=== PATIENT | male | born 1950 | race Caucasian/White ===

== ENCOUNTER → 2017-02-25 | Outpatient (CLI) | payer MEDICARE ==
[~2017-02-25] MED LIST: ACCUNEB 0.1.25 MG/1 INH; AMLODIPINE BESYL5 MG PO; ASPIR-TRIN325 MG PO; ASPIRIN ADULT L81 M2 PO; ATORVASTATIN CA80 M1 PO; BROVANA15 MCG/2 M INH; COZAAR100 MG PO; FLOVENT HFA12 GM IH; HYDRALAZINE; Hyzaar 25 MG-101 TAB PO; IS INH; KROGER NIC21 MG/24 H T; LEVAQUIN750 M1 PO; LEVAQUIN750 MG PO; LIPITOR; LOSARTAN POTAS100 M1 PO; LOSARTAN POTASS1 TA2 PO; MUCINEX600 MG PO; NO MED LIST; NORCO 325 MG-7.1 TAB PO; NORCO 7.5-3251 EACH PO; PREDNISONE10 MG PO; PREDNISONE20 M1 PO; PREDNISONE5 MG PO; PROAIR HFA0.09 MG/AC INH; PROAIR HFA8.5 GM INH; PROTONIX TR40 M1 PO; QVAR0.08 MG/AC INH; SIMVASTATIN20 MG PO; SOLU-MEDROL125 MG PO; SPIRIVA -- 3018 MCG PO; TEKTURNA300 MG PO; TRAMADOL HCL50 MG PO; TRAZODONE HYDRO50 MG PO; ULTRAM50 MG PO; VIBRAMYCIN100 MG PO; WELLBUTRIN SR150 MG PO; WELLBUTRIN100 MG PO; ZITHROMAX250 MG PO; [UNRECOGNIZED DRUG - SUPPLY] NEB
[2017-02-25 14:40] LABS: BASO # 0.1 10*3/uL (0.0-0.1); BASO % 0.7 % (0.0-1.0); EOS # 0.2 10*3/uL (0.0-0.4); EOS % 2.3 % (1.0-4.0); HEMATOCRIT 41.4 % (42.0-52.0); HEMOGLOBIN 13.3 g/dl (14.0-18.0); LYMPH # 1.9 10*3/uL (1.3-4.4); LYMPH % 19.8 % (27.0-41.0); MEAN CELL VOLUME 96.1 fl (80.0-94.0); MEAN CORPUSCULAR HGB 30.9 pg (27.0-31.0); MEAN CORPUSCULAR HGB CONC 32.1 g/dl (33.0-37.0); MONO # 0.5 10*3/uL (0.1-1.0); MONO % 5.6 % (3.0-9.0); NEUT # 6.9 10*3/uL (2.3-7.9); NEUT % 71.2 % (47.0-73.0); PLATELET COUNT AUTOMATED 442 10*3/uL (130-400); RED BLOOD COUNT 4.31 10*6/uL (4.50-5.90); RED CELL DISTRI WIDTH 13.2 % (0-14.5); WHITE BLOOD COUNT 9.7 10*3/uL (4.8-10.8)
[2017-02-25 15:11] LABS: ALKALINE PHOSPHATASE 92 U/L (45-117); BILIRUBIN, TOTAL 0.3 mg/dl (0.2-1.0); BUN 15 mg/dl (7-24); CARBON DIOXIDE 33 mmol/L (21-32); CHLORIDE 101 mmol/L (98-107); CHOLESTEROL 186 mg/dL (<200); EST GLOM FILT AFRICAN AMERICAN > 60 ml/min; GLUCOSE 98 mg/dL (65-99); HDL CHOLESTEROL 61 mg/dl (40-60); LDL CHOLESTEROL 102 mg/dL (9-159); POTASSIUM 3.9 mmol/L (3.5-5.1); SGOT/AST 20 IU/L (3-35); SGPT/ALT 16 U/L (12-78); SODIUM 142 mmol/L (136-145); TOTAL PROTEIN 7.8 gm/dL (6.4-8.2); TRIGLYCERIDES 113 mg/dl (<150); VLDL CHOLESTEROL 23 mg/dL (6-40)
== END | disposition home or self-care (01) ==
LOC: LAB 14:19
PROVIDERS: Internal Medicine
DX: Z12.5 Encounter for screening for malignant neoplasm of prostate (principal); I10 Essential (primary) hypertension; E55.9 Vitamin D deficiency, unspecified

== ENCOUNTER 2017-08-06 19:31 | Inpatient (IN) | payer MEDICARE ==
[~2017-08-06] VITALS: Ht 175.2 cm; Wt 85.5 kg
--- NOTE | ~2017-08-06 | PR ---
[place], [place] PROGRESS NOTE NAME: SCOTT HUYNH [facility] #: [id number] UNIT #: [id number] ROOM: 525 DOCTOR: CARMITA RAMOS MD,REY BIRTHDATE: [birth year] DOS: 08/13/2017 PULMONARY FOLLOWUP SUBJECTIVE: He has been noted comfortable at this time. Shortness breath was still noted with exertion, but improving. The wheezing and cough in the patient has been gradually subsiding. OBJECTIVE: VITAL SIGNS: Shows normal temperature, respiratory rate 20, heart rate 112, blood pressure 150/63. The pulse oxygen saturation on 3 liters nasal cannula is 98% saturation. HEENT: Showed no new change. NECK: Supple. CARDIOVASCULAR: S1, S2 audible. LUNGS: Noted without any crackles, mild expiratory wheezing. ABDOMEN: Soft, nontender. IMPRESSION: 1. The patient who has been currently noted progressive resolution improvement in the acute on chronic hypoxic respiratory failure. 2. Acute hypercapnic respiratory failure, resolving as well. 3. Left upper lung mass with acute tracheobronchitis. PLAN OF TREATMENT: The patient has been reassessed for adjustment of home oxygen and requires 3 liters oxygen supplementation, continued issues in the home setting. In the meantime, continue the patient on other therapy, plan and management as in progress. Usual care. Supportive therapy, plan of care and other treatments. REY VIZCARRA MD CM:PNTRANS [phone] REY RAMOS MD 08/13/17 1630 interface
--- NOTE | ~2017-08-06 | PR ---
[place], [place] PROGRESS NOTE NAME: SCOTT HUYNH [facility] #: [id number] UNIT #: [id number] ROOM: 525 DOCTOR: CARMITA RAMOS MD,REY BIRTHDATE: [birth year] DOS: 08/09/2017 SUBJECTIVE: He has been noted comfortable at this time, sitting on the bed. He has reported partial reduction of the symptoms of shortness of breath. Denies symptoms of chest pain. He has used the BiPAP for a few hours last night. OBJECTIVE: VITAL SIGNS: Normal temperature, respiratory rate 22, heart rate of 104, blood pressure 160/80. Pulse oxygen saturation of the patient recorded as 90% on 3 liters canula, 98% with the BiPAP. HEENT: Examination showed no new change. NECK: Supple. CARDIOVASCULAR: S1, S2 audible. LUNGS: Noted. Moderate decreased breath sounds were noted with expiratory wheezing. There were no crackles. ABDOMEN: Soft, nontender. EXTREMITIES: The patient was noted without any edema. LABORATORY DATA: CMP today noted normal BUN and creatinine. CBC: WBC count 18.5, platelet count mildly elevated to 435,000. IMPRESSION: 1. The patient with a left upper lung mass. 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 2. Resolving acute exacerbation of chronic obstructive pulmonary disease, acute tracheobronchitis. 3. Leukocytosis related to underlying infection because of the corticosteroids. PLAN OF MANAGEMENT: Reduce the Solu-Medrol to 40 mg every 8 hours. Monitor leukocytosis. Continue the BiPAP use. Ambulation was encouraged. Other supportive plan of therapy is in progress. REY VIZCARRA MD CM:PNTRANS [phone] REY RAMOS MD 08/09/171929 interface
--- NOTE | ~2017-08-06 | PR ---
[place], [place] PROGRESS NOTE [facility]: [facility] #: [id number] UNIT #: [id number] ROOM: 525 DOCTOR: CARMITA RAMOS MD,REY BIRTHDATE: [birth year] DOS: 08/11/2017 SUBJECTIVE: The patient was seen and examined on 08/11/2017, reported partial reduction in respiratory symptoms, still coughing and wheezing at times. Denies symptoms of chest pain. The patient has been using the BiPAP as ordered intermittently. OBJECTIVE: VITAL SIGNS: Normal temperature, respiratory rate 20, heart rate of 99, blood pressure 157/62. Pulse oxygen saturation 3 liters nasal cannula 96% saturation. HEENT: No acute change. NECK: Supple. CARDIOVASCULAR: S1, S2 audible. LUNGS: Moderate decreased breath sounds, expiratory wheezing which are noted mild to moderately. ABDOMEN: Soft, nontender. LABORATORY DATA: BMP was noted, CO2 37, otherwise was normal. CBC; WBC ____, hemoglobin 12.8, hematocrit 40.5. The culture of the sputum was pending. Gram stain shows moderate white blood cells with epithelial cells, few gram-positive cocci in pairs and clusters. Negative bacilli. Preliminary normal parveen, final culture results were pending from the 18th of this month. IMPRESSION: Persistent acute exacerbation of chronic obstructive pulmonary disease, acute tracheobronchitis as well as acute hypercapnic hypoxic respiratory failure with gradual improvement. PLAN OF TREATMENT: Monitoring culture results of the sputum. No other changes in the medication at this time will be necessary. Continuation of bronchodilators and oxygen supplementation and BiPAP. REY VIZCARRA MD CM:PNTRANS [id number] REY RAMOS MD 08/12/17 0428 interface
--- NOTE | ~2017-08-06 | PR ---
[place], [place] PROGRESS NOTE NAME: SCOTT HUYNH UNIT #: [id number] ROOM: 525 DOCTOR: REY MARSHALL MD BIRTHDATE: [birth year] DOS: 08/10/2017 SUBJECTIVE: The patient has been using the BiPAP at this time. He was noted with moderate edema of the lower extremity. The shortness of breath has been gradually subsiding. The wheezing was improving slowly. PHYSICAL EXAMINATION: VITAL SIGNS: Normal temperature, respiratory rate 20, heart rate 103, blood pressure 154/76 recorded this morning. Intake 1350, output 1575 mL. The pulse oxygen saturation on 3 liters nasal cannula and the BiPAP was 93-98% saturation. LUNGS: Moderate decreased breath sounds, mild expiratory wheezing. There were no crackles. ABDOMEN: Soft, nontender. EXTREMITIES: Show mild edema. Dryness of the lower extremities. LABORATORY DATA: The patient's CBC today: WBC count 17.6, platelet count 440,000 with mild reduction in hemoglobin and hematocrit. The BMP for the patient that was done this morning showed normal BUN and creatinine. IMPRESSION: 1. The patient was currently noted with resolving acute on chronic hypoxic, patient with resolving rather acute hypercapnic and hypoxic respiratory failure. 2. 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 Edema of the lower extremities secondary to congestive heart failure and cor pulmonale. PLAN OF TREATMENT: Continuation of current dose of bronchodilators, oxygen supplementation, corticosteroids and other treatment as previously. Solu-Medrol of the patient is currently being used at 40 mg every 8 hours. It will be decreased to b.i.d. dosing. Diuretic therapy would be recommended for edema of the lower extremity. Cardiology consultation if not already obtained should be done. [place], [place] PROGRESS NOTE NAME: SCOTT HUYNH UNIT #: [id number] ROOM: [facility] DOCTOR: REY MARSHALL MD BIRTHDATE: [birth year] REY VIZCARRA MD CM:PNTRANS [id number] REY RAMOS MD 08/10/17 1844 interface
--- NOTE | ~2017-08-06 | CON ---
[place], [place] REPORT OF CONSULTATION NAME: SCOTT HUYNH [facility] #: [id number] UNIT #: [id number] ROOM: 525 DOCTOR: REY MARSHALL MD BIRTHDATE: [birth year] DOS: 08/07/2017 CONSULTATION REQUESTED BY: Hospitalist services. REASON FOR CONSULTATION: Recurrent ongoing respiratory symptoms as well as the mass lesion noted on the current chest x-ray and confirmed with the CT scan of the chest. HISTORY OF PRESENT ILLNESS: A 67-year-old white male patient who has been admitted to the hospital to the hospitalist services on 08/06/2017. The patient came into the Emergency as he had developed progressive increased respiratory symptoms over the past couple of weeks. He was noted with symptoms of shortness of breath, which has noted significantly worse. The patient was also noted with symptoms of coughing, which has been also noted significant increase. The wheezing also described intermittently with chest pain, which is described nonspecific as well. The patient denies any symptoms of hemoptysis. He has been currently hospitalized and treated for the acute exacerbation of COPD. The chest x-ray reported with the left upper lung mass. REVIEW OF SYSTEMS: CONSTITUTIONAL: Denies fatigue and tiredness for this patient. The patient denies any abnormal weight loss history. Denies fever or chills. EYES: Denies any burning, redness, or diplopia. ENT: Denies sore throat, hoarseness, otalgia, postnasal drainage or epistaxis. CARDIOVASCULAR: Denies any symptoms of anginal pain, palpitation, or edema of the lower extremities. GASTROINTESTINAL: Denies dysphagia, nausea, vomiting, diarrhea, abdominal pain, hematemesis, melena, or hematochezia. Denies any symptoms of dysphagia. GENITOURINARY: Denies dysuria, suprapubic pain, or hematuria. MUSCULOSKELETAL: Denies acute joint pain, redness or tenderness, except some pain was described in the left elbow intermittently. CENTRAL NERVOUS SYSTEM: Denies dizziness, headache, diplopia, syncopal episodes or seizures. SKIN: Denies lesions or rashes. Remaining systems for the patient were reviewed and they were noted all negative. PAST MEDICAL HISTORY: 1. The patient with known history of essential hypertension. 2. COPD, longstanding. He has a history of nicotine abuse. 3. Degenerative arthritis. 4. Coronary artery disease. 5. Anemia of chronic disease. PAST SURGICAL HISTORY: Noted left knee surgery. SOCIAL HISTORY: The patient is currently , has 2 daughters. Denies any history of alcohol use, illicit drug use or occupational exposure history. 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 FAMILY HISTORY: The patient's father at 59 years of complications of myocardial infarction. Mother approximately age of 7070 years old related to COPD. MEDICATIONS: The home medications reported are use of Norvasc, ProAir HFA inhaler, aspirin, Flovent HFA inhaler, [place] 7.5/325 p.r.n. use, losartan and prednisone recent tapering dose. DRUG ALLERGIES: Noted for no known drug allergies. PHYSICAL EXAMINATION: GENERAL: This is a 67-year-old white male who has been currently noted comfortably sitting on the bed without any distress at this time of the assessment. VITAL SIGNS: Height for the patient recorded as 5 feet 9 inches, weight of 188 pounds, BMI 27.8. Recorded normal temperature, respiratory rate 18-28, heart rate 96-106 with sinus tachycardia, blood pressure 118/66-160/64. The pulse oxygen saturation of the patient recorded on 2 liters nasal cannula 96% saturation. HEENT: Head is atraumatic. Eyes, nonicterus. NECK: Supple. There were no signs of ptosis or miosis. The JVD does not seem to be elevated in sitting position. LUNGS: Noted diffuse reduction in breath sounds with diffuse expiratory wheezing without any crackles heard. ABDOMEN: Soft, mild obesity. Bowel sounds present without any tenderness. EXTREMITIES: The patient was noted without any edema, clubbing or cyanosis. CENTRAL NERVOUS SYSTEM: The patient was noted without any focal deficit. EXTREMITIES: Cranial nerves 2-12 intact. MUSCULOSKELETAL: No deformities. SKIN: No visible lesions or rashes on the exposed skin. LABORATORY DATA: CBC of the patient that was done 08/06/2017 WBC 18.5, hemoglobin 13.9, hematocrit 44.4, platelet count of 487,000. CMP of the patient of 08/06/2017: BUN and creatinine were normal. CO2 39, remaining CMP normal. Arterial blood gas 08/06/2017 pH of 7.33, pCO2 68.1, pO2 of 88.8 on 2 liter nasal cannula. PT and PTT patient were noted as normal. CBC of this morning, WBC count 10.9, hemoglobin 11.5, hematocrit 37.2, platelet count 406,000, 96% noted with auto differential. CMP this morning, normal BUN and creatinine, CO2 of 37. Albumin of 3.0, total protein mildly decreased at 5.9. Troponin yesterday and this morning for the patient 3 sets were completed, they were noted all normal. Chest x-ray that was done at admission was reviewed that was done for this patient on 08/06/2017 shows a left apical mass, with noted changes of COPD and hyperinflation. The chest x-ray of patient on 05/04/2017 was noted with pleural thickening was noted in the left apex. The patient had a chest x-ray done 03/19/[address] scan of the chest that was done for this patient on 03/21/2017 was personally reviewed at that time. A 4.2 cm spiculated [place], [place] REPORT OF CONSULTATION NAME: SCOTT HUYNH UNIT #: [id number] ROOM: [facility] DOCTOR: CARMITA RAMOS MD,[facility] BIRTHDATE: [birth year] mass noted in the left apex. The patient has 1.5 cm spiculated nodule was noted in the right upper lung with paraseptal and centrilobular emphysema changes noted in the lungs bilaterally. The CT scan of the chest that was done on 08/06/2017, assessment of current abnormal chest x-ray showed marked increase in the size of the mass from 4.5 cm in size and that has been increased at this time to 7.7 x 5.6 cm in size involving with destruction of the first, second and third left rib cage. The nodule in the right upper lung for this patient appeared to be the same. A small nodule was noted in the left lung as well. Changes of centrilobular emphysema and paraseptal emphysema changes were noted as well about the same. Lack of the IV contrast does limit the assessment of the mediastinum; however, there was no obvious lymphadenopathy noted in the left hilar area or the mediastinum at this time. IMPRESSION: 1. The patient who has been currently admitted to the hospital with the severe acute hypercapnic respiratory failure. The patient with acute exacerbation of chronic obstructive pulmonary disease and acute bacterial bronchitis. 2. Left upper lung mass, with destruction of the first, second and third rib involving most likely consistent with malignancy, which has been noted gradually progressive in the patient since last CT scan of 03/2016. 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 3. History of chronic continued nicotine dependence was noted as well. PLAN OF MANAGEMENT: The patient has been currently getting intravenous corticosteroids 80 mg q.8h., which will be continued the same dose for the next 24 hours prior to reduction. Patient was getting the antibiotics for the community-acquired bacterial infection and bronchitis that will be continued. Assessment for the current malignant process needs to be done as an outpatient. The patient's further workup if it is done for this patient as an outpatient would be inquired from the primary care physician's office as well. Collect the sputum for Gram stain culture obtained. Other arterial blood gas to assess the patient's current response by the medical management if the CO2 continues to be elevated or decreased. Consider use of the BiPAP support for this patient to help resolve the hypoxic respiratory failure. Other supportive therapy, plan of management and care. Nicotine replacement patch to overcome the nicotine withdrawal. Other additional treatment changes need to be made to the patient treatment based on progression of the illness. Thank you for allowing me to participate in the care in this patient. [place], [place] REPORT OF CONSULTATION NAME: LINOSCOTT UNIT #: [id number] ROOM: 525 DOCTOR: REY MARSHALL MD BIRTHDATE: [birth year] REY VIZCARRA MD CM:CONSTR:REPORT OF CONSULTATION 1336 08/08/17 1313 interface
--- NOTE | ~2017-08-06 | PR ---
[place], [place] PROGRESS NOTE NAME: SCOTT HUYNH UNIT #: [id number] ROOM: 525 DOCTOR: REY MARSHALL MD BIRTHDATE: [birth year] DOS: 08/12/2017 SUBJECTIVE: He has been noted with gradual reduction of the respiratory symptoms. Shortness of breath and wheezing has been slowly improving. Denies chest pain. He has used the BiPAP at night and currently using the oxygen supplementation. OBJECTIVE: VITAL SIGNS: Normal temperature, respiratory rate 22, heart rate 99, blood pressure 152/66-154/73. The pulse oxygen saturation on 3 liters 94% saturation noted. HEENT: Showed no new change. NECK: Supple. CARDIOVASCULAR: S1, S2 audible. LUNGS: Noted with [id number] expiratory wheezing, gradually improving from previous exam. There were no crackles. ABDOMEN: Soft, nontender. LABORATORY DATA: CBC: WBC count 17.4, platelet count 505,000. BMP: BUN 17, creatinine was normal. The culture of the sputum was noted normal parveen. IMPRESSION: 1. Gradual resolution of the acute on chronic hypercapnic and hypoxic respiratory failure. 2. 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 3. Acute bronchitis. 4. Leukocytosis. PLAN OF TREATMENT: The dose of Solu-Medrol will be changed to 40 mg daily from today. The patient already getting Lasix for edema of the lower extremities. The BiPAP and the oxygen supplementation to be continued as previously. Discontinue the Zithromax and Rocephin and ____ start the patient on doxycycline 100 mg p.o. b.i.d. from today. Other treatment plan to be changed based on progression of illness, possible consideration for discharge in the morning. Home oxygen assessment to adjust the oxygen need for the home. [place], [place] PROGRESS NOTE NAME: SCOTT HUYNH UNIT #: [id number] ROOM: 525 DOCTOR: REY MARSHALL MD BIRTHDATE: [birth year] REY VIZCARRA MD CM:PNTRANS [phone] [id number] REY RAMSO MD 08/12/171926 interface
--- NOTE | ~2017-08-06 | PR ---
[place], [place] PROGRESS NOTE NAME: SCOTT HUYNH UNIT #: [id number] ROOM: 525 DOCTOR: REY MARSHALL MD BIRTHDATE: [birth year] DOS: 08/08/2017 SUBJECTIVE: The patient has been noted without any acute distress at this time. Denies symptoms of chest pain or abdominal pain. Shortness breath for the patient has been noted better. OBJECTIVE: VITAL SIGNS: For the patient which was recorded shows the temperature noted as normal. The respiratory rate recorded as 20, heart rate 102, blood pressure 172/74. The pulse oxygen saturation recorded as 92% on 2.5 liters nasal cannula. HEENT: Showed no new change. NECK: Supple. CARDIOVASCULAR: S1, S2 audible. LUNGS: Moderate expiratory wheezing were noted, partially decreased from previous examination. ABDOMEN: Soft, nontender. EXTREMITIES: Showed no edema. LABORATORY DATA: CBC today: WBC count 17.5, hemoglobin 11.7, hematocrit 36.9, platelet count 410,000. CMP this morning, normal BUN and creatinine. The blood culture was noted without any bacteria growth. IMPRESSION: 1. The patient was currently noted with resolving acute exacerbation of chronic obstructive pulmonary disease. 2. Left upper lung mass which patient most likely is malignant with possibility of superior sulcus tumor has been considered. 3. History of nicotine abuse. PLAN OF TREATMENT: The patient will be continued on the bronchodilators with oxygen supplementation. The Solu-Medrol will be continued with the same dose because of significant wheezing still present. ____ of Solu-Medrol may be started from tomorrow. [place], [place] PROGRESS NOTE NAME: SCOTT HUYNH UNIT #: [id number] ROOM: 525 DOCTOR: REY MARSHALL MD BIRTHDATE: [birth year] REY VIZCARRA MD CM:PNTRANS [phone] REY RAMSO MD 08/09/17211 interface
[2017-08-06 19:33] VITALS: BP 151/89
--- NOTE | 2017-08-06 19:51 | NUR ---
PT DOES NOT HAVE LIST OR BOTTLES OF MEDS
[2017-08-06 19:56] LABS: BASO % 0.2 % (0.0-1.0); EOS % 0.1 % (1.0-4.0); HEMATOCRIT 44.4 % (42.0-52.0); HEMOGLOBIN 13.9 g/dl (14.0-18.0); LYMPH # 1.2 10*3/uL (1.3-4.4); LYMPH % 6.3 % (27.0-41.0); MEAN CELL VOLUME 99.3 fl (80.0-94.0); MEAN CORPUSCULAR HGB 31.1 pg (27.0-31.0); MEAN CORPUSCULAR HGB CONC 31.3 g/dl (33.0-37.0); MEAN PLATELET VOLUME 9.3 fl (9.6-12.3); MONO # 0.9 10*3/uL (0.1-1.0); MONO % 4.8 % (3.0-9.0); NEUT # 16.2 10*3/uL (2.3-7.9); PLATELET COUNT AUTOMATED 487 10*3/uL (130-400); RED BLOOD COUNT 4.47 10*6/uL (4.50-5.90); RED CELL DISTRI WIDTH 13.7 % (0-14.5); WHITE BLOOD COUNT 18.5 10*3/uL (4.8-10.8)
[2017-08-06 20:13] LABS: ALBUMIN 3.9 gm/dl (3.1-4.5); ALKALINE PHOSPHATASE 91 U/L (45-117); BUN 24 mg/dl (7-24); CHLORIDE 100 mmol/L (98-107); CREATININE 0.64 mg/dL (0.70-1.30); POTASSIUM 4.6 mmol/L (3.5-5.1); SGOT/AST 14 IU/L (3-35); SGPT/ALT 19 U/L (12-78); SODIUM 145 mmol/L (136-145); TOTAL PROTEIN 7.7 gm/dL (6.4-8.2)
[2017-08-06 20:14] LABS: TROPONIN I < 0.015 ng/ml (<0.045)
[2017-08-06 21:03] LABS: ABG BASE EXCESS 7.6 mmol/L (-2.0-2.0); ABG HCO3 35.4 mmol/l (22-26); ABG O2 SATURATION 97.2 % (95-97); ARTERIAL BLOOD GAS PCO2 68.1 mmHg (35-45); ARTERIAL BLOOD GAS PH 7.335 (7.35-7.45); ARTERIAL BLOOD GAS PO2 88.8 mmHg (80-90)
[2017-08-06 21:06] VITALS: BP 151/94
--- NOTE | 2017-08-06 21:06 | NUR ---
CRITICAL PCO2, INFORMED DR UNGER
--- NOTE | 2017-08-06 21:06 | NUR ---
RETURNED FROM CT
--- NOTE | 2017-08-06 23:24 | NUR ---
WAITING ON LAB TO DRAW BLOOD CULTURES BEFORE ABLE TO START IV ANTBX, AND BEFORE CAN TAKE TO ADMISSION BED TRAFFIC SIGNAL MECHANIC UNABLE TO OBTAIN, WILL HAVE ANOTHER TECH TRY
[2017-08-07] VITALS (7 sets, daily range): BP systolic 118–161; BP diastolic 50–79
--- NOTE | 2017-08-07 00:05 | NUR ---
A 67, admitted to , under the services of ALMA Owens DO with a diagnosis of EXAC COPD, MASS OF ULL. Chief complaint is SOB. Patient arrived via stretcher from ER. Monitor applied. Initial assessment completed. Vital signs taken and recorded. ALMA OWENS DO notified of admission to the unit. Orders received. See assessment for past medical history, medications and allergies. Patient and/or family oriented to unit. [facility] Clothing/patient valuable form completed. RADHA ROTH
--- NOTE | 2017-08-07 01:15 | NUR ---
UNABLE TO VERIFY PT HOME MEDS. DR URIBE NOTIFIED.
--- NOTE | 2017-08-07 04:58 | NUR ---
DR VIZCARRA NOTIFIED OF CONSULT. NO NEW ORDERS AT THIS TIME.
[2017-08-07 06:24] LABS: MEAN CELL VOLUME 99.7 fl (80.0-94.0); MEAN CORPUSCULAR HGB 30.8 pg (27.0-31.0); MEAN CORPUSCULAR HGB CONC 30.9 g/dl (33.0-37.0); MEAN PLATELET VOLUME 9.4 fl (9.6-12.3); PLATELET COUNT AUTOMATED 406 10*3/uL (130-400); RED BLOOD COUNT 3.73 10*6/uL (4.50-5.90); RED CELL DISTRI WIDTH 13.5 % (0-14.5); WHITE BLOOD COUNT 10.9 10*3/uL (4.8-10.8)
[2017-08-07 06:25] LABS: HEMATOCRIT 37.2 % (42.0-52.0); HEMOGLOBIN 11.5 g/dl (14.0-18.0)
[2017-08-07 06:44] LABS: BUN 20 mg/dl (7-24); CHLORIDE 105 mmol/L (98-107); CHOLESTEROL 168 mg/dL (<200); CREATININE 0.44 mg/dL (0.70-1.30); PHOSPHOROUS 3.1 mg/dL (2.5-4.9); POTASSIUM 4.2 mmol/L (3.5-5.1); SGOT/AST 14 IU/L (3-35); SGPT/ALT 13 U/L (12-78); SODIUM 145 mmol/L (136-145); TOTAL PROTEIN 5.9 gm/dL (6.4-8.2); TRIGLYCERIDES 56 mg/dl (<150); VLDL CHOLESTEROL 11 mg/dL (6-40)
[2017-08-07 06:50] LABS: ACT PARTIAL THROMBO TIME 24.4 SECONDS (20.8-31.5)
[2017-08-07 06:51] LABS: ALKALINE PHOSPHATASE 68 U/L (45-117); FREE T4 1.09 ng/dl (0.76-1.46); HDL CHOLESTEROL 70 mg/dl (40-60); LDL CHOLESTEROL 87 mg/dL (9-159); THYROID STIM HORMONE (HS) 0.161 uIU/ml (0.358-4.75)
[2017-08-07 06:57] LABS: PLATELET SUFFICIENCY HIGH (NORMAL); TOTAL CELLS COUNTED 100 #CELLS
--- NOTE | 2017-08-07 08:45 | NUR ---
PT HOME MEDICATIONS NEED VARIFIED, HOWEVER PATIENT DOES NOT KNOW HOME MEDICAIONS AT ALL AND [facility] AND THEY ARE CLOSED TODAY.
[2017-08-07 09:02] LABS: VITAMIN D, 25-HYDROXY 35.8 ng/mL (30-100)
--- NOTE | 2017-08-07 09:20 | NUR ---
PT COMPLAINS OF BACK PAIN 07/03, NORCO GIVEN. SEE MAR. WILL MONITOR FOR EFFECTIVENSS. PT SITTING AT SIDE OF BED, SHORTNESS OF BREATH NOTED. PT STATES SHORTNESS OF BREATH HAS IMPROVED SOME SINCE ADMISSION. OXYGEN ON AT 3 LITERS. NO OTHER NEEDS STATED AT THIS TIME. WILL CONTINUE TO MONITOR
--- NOTE | 2017-08-07 10:53 | NUR ---
Shift chart check completed.
--- NOTE | 2017-08-07 13:37 | NUR ---
PT COMPLAINS OF BACK PAIN 06/02. NORCO GIVEN. SEE DEC. WILL MONITOR FOR EFFECTIVENESS
[2017-08-07 13:55] LABS: ABG BASE EXCESS 6.6 mmol/L (-2.0-2.0); ABG HCO3 33.4 mmol/l (22-26); ABG O2 SATURATION 94.9 % (95-97); ARTERIAL BLOOD GAS PCO2 59.3 mmHg (35-45); ARTERIAL BLOOD GAS PH 7.366 (7.35-7.45); ARTERIAL BLOOD GAS PO2 69.4 mmHg (80-90)
--- NOTE | 2017-08-07 14:05 | NUR ---
DR. VIZCARRA NOTIFIED OF ABG RESULTS, ORDER FOR BIPAP PLACED. RESPIRATORY NOTIFIED.
--- NOTE | 2017-08-07 16:39 | NUR ---
PT STATES ONLY HOME MEDICAION HE IS STILL TAKING IS ALBUTEROL INHALER AND AEROSOL TREATMENTS AND HE HAS NOT HAD THEM FILLED FOR A WHILE.
[2017-08-08] VITALS: BP 143/66
--- NOTE | 2017-08-08 02:11 | NUR ---
24 HR chart check completed.
--- NOTE | 2017-08-08 03:41 | NUR ---
PATIENT STATES HIS BROTHER WILL BRING HIS CLIP[employer] TOMORROW TO SHAVE HIS LYN SO HIS BIPAP WILL FIT PROPERLY.
--- NOTE | 2017-08-08 03:41 | NUR ---
PATIENT MEDICATED WITH PRN NORCO FOR RIB PAIN. WILL MONITOR
--- NOTE | 2017-08-08 04:45 | NUR ---
MEDICATION EFFECTIVE PER PATIENT
[2017-08-08 06:27] LABS: HEMATOCRIT 36.9 % (42.0-52.0); HEMOGLOBIN 11.7 g/dl (14.0-18.0); MEAN CELL VOLUME 98.7 fl (80.0-94.0); MEAN CORPUSCULAR HGB 31.3 pg (27.0-31.0); MEAN CORPUSCULAR HGB CONC 31.7 g/dl (33.0-37.0); MEAN PLATELET VOLUME 9.4 fl (9.6-12.3); PLATELET COUNT AUTOMATED 410 10*3/uL (130-400); RED BLOOD COUNT 3.74 10*6/uL (4.50-5.90); RED CELL DISTRI WIDTH 13.6 % (0-14.5); WHITE BLOOD COUNT 17.5 10*3/uL (4.8-10.8)
[2017-08-08 06:58] LABS: ATYPICAL LYMPHS 1 % (0-0); TOTAL CELLS COUNTED 100 #CELLS
[2017-08-08 06:59] LABS: PLATELET SUFFICIENCY NORMAL (NORMAL)
[2017-08-08 07:00] LABS: CHLORIDE 106 mmol/L (98-107); POTASSIUM 4.1 mmol/L (3.5-5.1); SODIUM 145 mmol/L (136-145)
[2017-08-08 07:06] LABS: ALBUMIN 2.9 gm/dl (3.1-4.5); ALKALINE PHOSPHATASE 66 U/L (45-117); BUN 17 mg/dl (7-24); CREATININE 0.45 mg/dL (0.70-1.30); SGOT/AST 9 IU/L (3-35); SGPT/ALT 13 U/L (12-78)
[2017-08-08 08:00] VITALS: BP 172/74
--- NOTE | 2017-08-08 08:56 | NUR ---
NORCO GIVEN PER PATIENT REQUEST FOR CHRONIC "ALL OVER" ARTHRITIC PAIN. WILL MONITOR.
--- NOTE | 2017-08-08 09:00 | NUR ---
Lidar Scientist in to talk to patient. Patient states lives at home with alone. There are no steps in the home. Physician: ann aponte [facility]acy: [facility] health services: [facility] Patient's level of ADLs: MINIMAL ASSIST Patient has working utilities: all working DME: cane, hospital bed, motorized wheelchair, home oxygen, portable tanks, nebulizer from [facility], shower chair Follow-up physician's appointment after d/c: will be made by hospitalist nurse director upon discharge Does patient want to access PORTAL?: no Discharge plan discussed with patient, patient states he lives at [facility], has all of the equipment he needs at home, also has a life alert bracelet, patient states his aids come 3 days a week to help him, patient states he will be going back home and denies any home needs. MISTY LOCO
--- NOTE | 2017-08-08 09:45 | NUR ---
KULDIP "HELPED A LITTLE BIT" PER PATIENT.
--- NOTE | 2017-08-08 11:06 | NUR ---
PT. GIVEN FLUTTER DEVICE PER DR'S ORDER. RETURNED DEMONSTRATION WITHOUT DIFFICULTY.
[2017-08-08 12:00] VITALS: BP 180/50
--- NOTE | 2017-08-08 12:50 | NUR ---
PATIENT REQUESTED SOMETHING FOR PAIN. HE WAS VERY AGITATED HIS HEART RATE WAS IN THE 120'S. MORPHINE WAS GIVEN AND RESPIRATORY WAS CALLED TO PLACE CPAP. WILL MONITOR.
--- NOTE | 2017-08-08 13:40 | NUR ---
MORPHINE WAS EFFECTIVE. PATIENT IS RESTING WITH CPAP IN PLACE AND HEART RATE IS 110-114. WILL CONTINUE TO MONITOR.
--- NOTE | 2017-08-08 15:43 | NUR ---
NORCO WAS GIVEN PER REQUEST OF PATIENT, PATIENT WAS AGITATED AND WRESTLESS. WILL MONITOR.
[2017-08-08 16:00] VITALS: BP 150/84
--- NOTE | 2017-08-08 16:30 | NUR ---
NORCO WAS EFFECTIVE. PATIENT SATISFIED.
--- NOTE | 2017-08-08 17:41 | NUR ---
MORPHINE WAS GIVEN PER PATIENT REQUEST AND C/O OF CHRONIC PAIN. WILL MONITOR.
--- NOTE | 2017-08-08 18:30 | NUR ---
MORPHINE EFFECIVE. PATIENT IS CALM WITHOUT ANY SIGNS OF PAIN OR DISCOMFORT. PATIENT IS SATISFIED.
[2017-08-08 20:00] VITALS: BP 172/94
--- NOTE | 2017-08-08 20:36 | NUR ---
DR BULL AWARE OF ELEVATED BP. STATES TO STOP FLUIDS AND RECHECK BP IN 2 HOURS.
--- NOTE | 2017-08-08 20:38 | NUR ---
FLUIDS STOPPED AT THIS TIME
--- NOTE | 2017-08-08 20:51 | NUR ---
PATIENT MEDICATED WITH PRN NORCO FOR RIB PAIN RATED 8/10 ON A 0/10 PAIN SCALE
--- NOTE | 2017-08-08 21:56 | NUR ---
PATIENT MEDICATED WITH PRN MORPHINE FOR RIB PAIN. NORCO NOT EFFECTIVE PER PATIENT
--- NOTE | 2017-08-08 23:30 | NUR ---
MEDICATION EFFECTIVE PER PATIENT
--- NOTE | 2017-08-08 23:48 | NUR ---
DR BULL AWARE OF BP DOWN TO 148/96 AFTER TURNING FLUIDS OFF. NO ORDERS
[2017-08-09] VITALS: BP 148/96
--- NOTE | 2017-08-09 01:39 | NUR ---
MEDICATED WITH PRN NORCO FOR C/O PAIN.
[2017-08-09 04:00] VITALS: BP 156/68
--- NOTE | 2017-08-09 05:12 | NUR ---
MEDICATED WITH PRN MORPHINE FOR C/O PAIN
[2017-08-09 06:18] LABS: HEMATOCRIT 38.2 % (42.0-52.0); HEMOGLOBIN 12.1 g/dl (14.0-18.0); MEAN CELL VOLUME 96.7 fl (80.0-94.0); MEAN CORPUSCULAR HGB 30.6 pg (27.0-31.0); MEAN CORPUSCULAR HGB CONC 31.7 g/dl (33.0-37.0); MEAN PLATELET VOLUME 9.8 fl (9.6-12.3); NUCLEATED RED BLOOD CELL 0.1 % (0.0-0.0); PLATELET COUNT AUTOMATED 435 10*3/uL (130-400); RED BLOOD COUNT 3.95 10*6/uL (4.50-5.90); RED CELL DISTRI WIDTH 13.8 % (0-14.5); WHITE BLOOD COUNT 18.5 10*3/uL (4.8-10.8)
[2017-08-09 06:35] LABS: ALBUMIN 3.1 gm/dl (3.1-4.5); ALKALINE PHOSPHATASE 66 U/L (45-117); BUN 21 mg/dl (7-24); CHLORIDE 103 mmol/L (98-107); CREATININE 0.49 mg/dL (0.70-1.30); POTASSIUM 3.9 mmol/L (3.5-5.1); SGOT/AST 13 IU/L (3-35); SGPT/ALT 16 U/L (12-78); SODIUM 142 mmol/L (136-145); TOTAL PROTEIN 6.2 gm/dL (6.4-8.2)
[2017-08-09 06:42] LABS: PLATELET SUFFICIENCY HIGH (NORMAL); TOTAL CELLS COUNTED 100 #CELLS
--- NOTE | 2017-08-09 07:18 | NUR ---
PATIENT TAKEN OFF BI-PAP, PLACED ON 3 L/M.
[2017-08-09 08:00] VITALS: BP 160/80
--- NOTE | 2017-08-09 08:00 | NUR ---
MEDICATED WITH NORCO FOR BACK PAIN HE RATES A 7 ON THE PAIN SCALE.
--- NOTE | 2017-08-09 09:00 | NUR ---
case management visits with patient, patient will be going back home and denies any home needs
--- NOTE | 2017-08-09 10:00 | NUR ---
NO FURTHER COMPLAINTS.
[2017-08-09 12:00] VITALS: BP 139/74
--- NOTE | 2017-08-09 13:19 | NUR ---
MEDICATED WITH MORPHINE FOR BACK PAIN HE RATES AN 8.
--- NOTE | 2017-08-09 14:14 | NUR ---
NO FURTHER COMPLAINTS OF PAIN.
[2017-08-09 16:00] VITALS: BP 154/76
--- NOTE | 2017-08-09 16:00 | NUR ---
TOOK OVER CARE OF PATIENT FAMILY IN ROOM, CALL LIGHT IN REACH PATIENT HAS NO CO AT THIS TIME SEE SHIFT ASSESSMENT
[2017-08-09 20:00] VITALS: BP 155/100; BP 156/88
--- NOTE | 2017-08-09 20:44 | NUR ---
Medicated with Morphine IV prn for back pain rating 8/10. Will monitor effectiveness. Call light within reach.
--- NOTE | 2017-08-09 21:45 | NUR ---
Patient resting quietly in bed with eyes closed. Morphine effective. Will continue to monitor. Call light within reach.
[2017-08-10] VITALS: BP 167/85
--- NOTE | 2017-08-10 00:15 | NUR ---
Medicated with [place] po prn for back pain rating /10. Will monitor effectiveness. Call light within reach.
--- NOTE | 2017-08-10 00:40 | NUR ---
24 HR chart check completed.
--- NOTE | 2017-08-10 01:15 | NUR ---
Patient resting quietly in bed with eyes closed. [place] effective. Will continue to monitor. Call light within reach.
--- NOTE | 2017-08-10 05:11 | NUR ---
Medicated with [place] po prn for back pain rating /10. Will monitor effectiveness. Call light within reach.
--- NOTE | 2017-08-10 06:17 | NUR ---
Patient resting quietly in bed with eyes closed. [place] effective. Will continue to monitor. Call light within reach.
[2017-08-10 06:20] LABS: HEMATOCRIT 38.1 % (42.0-52.0); MEAN CELL VOLUME 97.9 fl (80.0-94.0); MEAN CORPUSCULAR HGB 30.8 pg (27.0-31.0); MEAN CORPUSCULAR HGB CONC 31.5 g/dl (33.0-37.0); MEAN PLATELET VOLUME 9.5 fl (9.6-12.3); PLATELET COUNT AUTOMATED 440 10*3/uL (130-400); RED BLOOD COUNT 3.89 10*6/uL (4.50-5.90); RED CELL DISTRI WIDTH 14.1 % (0-14.5); WHITE BLOOD COUNT 17.6 10*3/uL (4.8-10.8)
[2017-08-10 06:42] LABS: TOTAL CELLS COUNTED 100 #CELLS
[2017-08-10 06:43] LABS: PLATELET SUFFICIENCY HIGH (NORMAL); POLYCHROMASIA SLIGHT
[2017-08-10 06:50] LABS: BUN 24 mg/dl (7-24); CHLORIDE 101 mmol/L (98-107); CREATININE 0.47 mg/dL (0.70-1.30); POTASSIUM 4.3 mmol/L (3.5-5.1); SODIUM 145 mmol/L (136-145)
[2017-08-10 08:00] VITALS: BP 154/76
--- NOTE | 2017-08-10 09:00 | NUR ---
case management visits with patient, patient denies any home needs
--- NOTE | 2017-08-10 10:26 | NUR ---
24 HR chart check completed.
--- NOTE | 2017-08-10 10:29 | NUR ---
MEDICATED WITH VICODEN FOR GENERALIZED ARTHRITIS PAIN PER PT'S REQUEST. STATES IS CHRONIC IN NATURE.
[2017-08-10 12:00] VITALS: BP 156/99
--- NOTE | 2017-08-10 13:13 | NUR ---
MEDICATED WITH MORPHINE 2MG IV FOR C/O OVERALL BODY ARTHRITIS. STATED CHRONIC AND RATED A 7.
[2017-08-10 16:00] VITALS: BP 147/84
--- NOTE | 2017-08-10 17:22 | NUR ---
MEDICATED WITH MORPHINE FOR C/O CHRONIC ARTHRITIS AND MOM FOR NO BM SINCE TUESDAY.
--- NOTE | 2017-08-10 19:20 | NUR ---
PATIENT MEDICATED WITH NORCO PER PRN ORDER AND PATIENT REQUEST FOR C/O BACK, NECK AND RIB PAIN. SEE EMAR. REINFORCED USE OF CALL LIGHT.
[2017-08-10 20:00] VITALS: BP 129/65
--- NOTE | 2017-08-10 21:00 | NUR ---
PATIENT RESTING QUIETLY. NO FURTHER C/O VOICED.
[2017-08-11] VITALS: BP 155/73
--- NOTE | 2017-08-11 00:36 | NUR ---
PATIENT MEDICATED WITH NORCO PER PRN ORDER FOR C/O BACK/ NECK PAIN. SEE EMAR. RATED PAIN A 7/10 WITH 10 BEING THE WORST. REINFORCED USE OF CALL LIGHT.
--- NOTE | 2017-08-11 04:58 | NUR ---
PATIENT MEDICATED WITH NORCO PER PRN ORDER FOR C/O BACK/ NECK AND RIB PAIN. SEE EMAR. REINFORCED USE OF CALL LIGHT.
[2017-08-11 06:51] LABS: BASO % 0.1 % (0.0-1.0); HEMATOCRIT 40.5 % (42.0-52.0); HEMOGLOBIN 12.8 g/dl (14.0-18.0); LYMPH # 1.2 10*3/uL (1.3-4.4); LYMPH % 6.7 % (27.0-41.0); MEAN CELL VOLUME 96.2 fl (80.0-94.0); MEAN CORPUSCULAR HGB 30.4 pg (27.0-31.0); MEAN CORPUSCULAR HGB CONC 31.6 g/dl (33.0-37.0); MEAN PLATELET VOLUME 9.5 fl (9.6-12.3); MONO # 1.3 10*3/uL (0.1-1.0); MONO % 6.8 % (3.0-9.0); NEUT # 15.8 10*3/uL (2.3-7.9); NEUT % 85.7 % (47.0-73.0); PLATELET COUNT AUTOMATED 451 10*3/uL (130-400); RED BLOOD COUNT 4.21 10*6/uL (4.50-5.90); WHITE BLOOD COUNT 18.5 10*3/uL (4.8-10.8)
[2017-08-11 07:38] LABS: BUN 21 mg/dl (7-24); CHLORIDE 100 mmol/L (98-107); CREATININE 0.49 mg/dL (0.70-1.30); POTASSIUM 4.2 mmol/L (3.5-5.1); SODIUM 140 mmol/L (136-145)
[2017-08-11 08:00] VITALS: BP 153/75
--- NOTE | 2017-08-11 08:24 | NUR ---
PT C/O OF ACHING PAIN ALL OVER, RATING 9/10
[2017-08-11 12:00] VITALS: BP 157/62
[2017-08-11 16:00] VITALS: BP 105/76
[2017-08-11 20:00] VITALS: BP 153/84
--- NOTE | 2017-08-11 21:23 | NUR ---
PATIENT MEDICATED WITH NORCO PER PRN ORDER FOR C/O BACK, NECK AND RIB PAIN. RATED PAIN A 9/10 WITH 10 BEING THE WORST. SEE EMAR. REINFORCED USE OF CALL LIGHT.
--- NOTE | 2017-08-11 23:03 | NUR ---
PATIENT RATING PAIN A 7/10 WITH 10 BEING THE WORST. MEDICATED SLOWLY WITH 2 MG IV MORPHINE . SEE EMAR. REINFORCED USE OF CALL LIGHT.
[2017-08-12] VITALS: BP 154/73
--- NOTE | 2017-08-12 01:52 | NUR ---
PATIENT MEDICATED WITH NORCO PER PRN ORDER FOR C/O ALL OVER PAIN/ DISCOMFORT. RATED PAIN A 7/10 WITH 10 BEING THE WORST. SEE EMAR. REINFORCED USE OF CALL LIGHT.
--- NOTE | 2017-08-12 05:16 | NUR ---
PATIENT MEDICATED SLOWLY WITH MORPHINE 2 MG IV PER PRN ORDER AND PATIENT REQUEST FOR C/O ALL OVER PAIN DISCOMFORT. RATED PAIN A 8/10 WITH 10 BEING THE WORST. SEE EMAR. REINFORCED USE OF CALL LIGHT
[2017-08-12 07:56] LABS: HEMATOCRIT 43.7 % (42.0-52.0); HEMOGLOBIN 13.8 g/dl (14.0-18.0); MEAN CORPUSCULAR HGB 30.9 pg (27.0-31.0); MEAN CORPUSCULAR HGB CONC 31.6 g/dl (33.0-37.0); MEAN PLATELET VOLUME 9.4 fl (9.6-12.3); PLATELET COUNT AUTOMATED 505 10*3/uL (130-400); RED BLOOD COUNT 4.46 10*6/uL (4.50-5.90); WHITE BLOOD COUNT 17.4 10*3/uL (4.8-10.8)
[2017-08-12 08:00] VITALS: BP 153/66
[2017-08-12 08:15] LABS: BUN 17 mg/dl (7-24); CHLORIDE 97 mmol/L (98-107); CREATININE 0.51 mg/dL (0.70-1.30); POTASSIUM 4.2 mmol/L (3.5-5.1); SODIUM 141 mmol/L (136-145)
[2017-08-12 08:25] LABS: PLATELET SUFFICIENCY HIGH (NORMAL); TOTAL CELLS COUNTED 100 #CELLS
--- NOTE | 2017-08-12 08:41 | NUR ---
RESTING AT SIDE OF BED, PT C/O 'ALL OVER PAIN" PT RATES PAIN 10/10. MEDICATED PO ORDERED PER PT REQUEST WITH NORCO. SEE EMAR.
--- NOTE | 2017-08-12 08:43 | NUR ---
DR VIZCARRA NOTIFIED OF CO2 LEVEL, NO NEW ORDERS. DR KAPADIA IN TO SEE PT.
--- NOTE | 2017-08-12 10:55 | NUR ---
MEDICATED IV SLOWLY ORDERED PER PT REQUEST WITH MORPHINE FOR CONTINUED C/O "ALL OVER PAIN" PT STATES NORCO ONLY EFFECTIVE FOR SHORT PERIOD OF TIMES. PT NOW RATES PAIN 08/02. SEE EMAR.
[2017-08-12 12:00] VITALS: BP 150/78
--- NOTE | 2017-08-12 13:58 | NUR ---
Received order to resume home health via [facility]. Faxed order and clincals to resume services after discharge.
--- NOTE | 2017-08-12 14:58 | NUR ---
MEDICATED WITH NORCO BY PT REQUEST. CALL LIGHT WITHIN REACH.
[2017-08-12 16:00] VITALS: BP 154/68
--- NOTE | 2017-08-12 18:05 | NUR ---
PT REQUESTS MORPHINE FOR PAIN RATED 9/10.
--- NOTE | 2017-08-12 18:21 | NUR ---
PT GIVEN MORPHINE FOR GENERALIZED PAIN 07/03
[2017-08-12 20:00] VITALS: BP 152/70
--- NOTE | 2017-08-12 20:30 | NUR ---
PATIENT MEDICATED WITH XANAX AND NORCO PER PRN ORDER FOR C/O ANXIETY AND BACK,NECK AND RIB PAIN. RATED PAIN A 7/10 WITH 10 BEING THE WORST. SEE EMAR. REINFORCED USE OF CALL LIGHT.
--- NOTE | 2017-08-12 21:45 | NUR ---
PATIENT RESTING QUIETLY. NO FURTHER C/O VOICED.
--- NOTE | 2017-08-12 22:32 | NUR ---
PATIENT MEDICATED SLOWLY WITH MORPHINE 2 MG IV PER PRN ORDER FOR C/O PAIN. RATED PAIN A 7/10 WITH 10 BEING THE WORST. SEE EMAR. REINFORCED USE OF CALL LIGHT
--- NOTE | 2017-08-12 22:35 | NUR ---
PATIENT MEDICATED SLOWLY WITH MORPHINE PER PRN ORDER FOR C/O BACK, NECK AND RIB PAIN. RATED PAIN A 7/10 WITH 10 BEING THE WORST. SEE EMAR. REINFORCED USE OF CALL LIGHT
--- NOTE | 2017-08-12 23:30 | NUR ---
PATIENT RESTING QUIETLY. NO FURTHER C/O VOICED.
[2017-08-13] VITALS: BP 154/63
--- NOTE | 2017-08-13 01:08 | NUR ---
PATIENT MEDICATED WITH NORCO PER PRN ORDER FOR C/O GENRALIZED ACHINESS. SEE EMAR. REINFORCED USE OF CALL LIGHT.
--- NOTE | 2017-08-13 02:36 | NUR ---
PATIENT RESTING QUIETLY. NO FURTHER C/O VOICED.
--- NOTE | 2017-08-13 05:43 | NUR ---
PATIENT MEDICATED WITH NORCO PER PRN ORDER FOR C/O PAIN. RATED PAIN A 9/10 WITH 10 BEING THE WORST. SEE EMAR. REINFORCED USE OF CALL LIGHT.
[2017-08-13 08:00] VITALS: BP 150/63
--- NOTE | 2017-08-13 09:40 | NUR ---
MEDICATED PT PER PRN ORDER WITH NORC FOR C/O PAIN "ALL OVER". PT STATES PAIN RATES A 9 OT OF 10 ON PAIN SCALE.
--- NOTE | 2017-08-13 09:40 | NUR ---
DR VIZCARRA IN TO SEE PT. HE STATED PT IS OK FOR DISCHARGE AND HE WILL BE SCHEDULED FROM DR VIZCARRA'S OFFICE FOR OUTPT PET SCAN.
--- NOTE | 2017-08-13 10:04 | NUR ---
PT ASSESSED FOR HOME O2 FOLLOWS: SAT 97% WITH 3L/M NC IN PLACE AT REST SAT 94% WITH 3L/M NC IN PLACE DURING AMBULATION. WALKED APPROXIMATELY [address] VIZCARRA NOTIFIED. DR. VIZCARRA KNOWS PT HAS HOME O2 AND WANTED TO KNOW IF LITER FLOW NEEDED INCREASED. PT STATES HE USES 2.5 TO 3L/M AT HOME. STATES DR. TIRADO ORDERED 3L/M HOME USE. DR. VIZCARRA STATING PT TO CONTINUE USING 3L/M. RN NOTIFIED.
--- NOTE | 2017-08-13 10:40 | NUR ---
PT STATES RELIEF OF PAIN WITH EARLIER NORCO.
[2017-08-13 12:00] VITALS: BP 141/72
[2017-08-13] MEDS ORDERED: PREDNISONE10 MG PO (12:34)
[2017-08-13] MEDS ORDERED: XANAX0.25 MG PO (12:34)
[2017-08-13] MEDS ORDERED: NICODERM CQ1 EAC2 TD (12:34)
[2017-08-13] MEDS ORDERED: NICODERM T (12:34)
[2017-08-13] MEDS ORDERED: DOXYCYCLINE MO100 M1 PO (12:34)
--- NOTE | 2017-08-13 13:43 | NUR ---
MEDICATED PT PER PRN ORDER WITHCesar CHRISTIANSEN FOR C/O PAIN "ALL OVER" THAT RATES 10/10 ON PAIN SCALE.
--- NOTE | 2017-08-13 13:48 | NUR ---
Spoke with home health - aides r/t to continue services.
--- NOTE | 2017-08-13 14:00 | NUR ---
PT STATES RELIEF OF PAIN WITH EARLIER NORCO.
--- NOTE | 2017-08-13 14:21 | NUR ---
Discharge instructions reviewed with patient/family. Patient receptive and verbalizes understanding. Follow-up care arranged. Written instructions given to patient/family. BEN HYDE
== END 2017-08-13 14:21 | disposition home or self-care (01) | DRG 871 ==
LOC: ED 19:31 → 5E 22:40 → EDHOLD 22:40 → 5E 22:45
PROVIDERS: Emergency Medicine; Family Medicine Adult Medicine; Hospitalist; Internal Medicine; Internal Medicine Critical Care Medicine; ADMIT Internal Medicine
PROC: 5A09457 Assistance with Respiratory Ventilation, 24-96 Consecutive Hours, Continuous Positive Airway Pressure (ICD-10-PCS; principal; 2017-08-08)
DX: A41.9 Sepsis, unspecified organism (principal); J18.9 Pneumonia, unspecified organism; J96.21 Acute and chronic respiratory failure with hypoxia; J96.22 Acute and chronic respiratory failure with hypercapnia; J44.0 Chronic obstructive pulmonary disease with (acute) lower respiratory infection; J44.1 Chronic obstructive pulmonary disease with (acute) exacerbation; I10 Essential (primary) hypertension; G89.29 Other chronic pain; R91.8 Other nonspecific abnormal finding of lung field; B96.89 Other specified bacterial agents as the cause of diseases classified elsewhere; M19.90 Unspecified osteoarthritis, unspecified site; J20.9 Acute bronchitis, unspecified; D53.9 Nutritional anemia, unspecified; R73.9 Hyperglycemia, unspecified; Z79.899 Other long term (current) drug therapy; I25.2 Old myocardial infarction; Z87.891 Personal history of nicotine dependence; Z87.81 Personal history of (healed) traumatic fracture; Z82.49 Family history of ischemic heart disease and other diseases of the circulatory system; Z99.81 Dependence on supplemental oxygen; Z83.6 Family history of other diseases of the respiratory system; Z80.3 Family history of malignant neoplasm of breast; Z83.3 Family history of diabetes mellitus; Z79.82 Long term (current) use of aspirin

== ENCOUNTER 2017-09-09 17:23 | Inpatient (IN) | payer MEDICARE ==
[~2017-09-09] VITALS: Ht 175.2 cm; Wt 83.1 kg
--- NOTE | ~2017-09-09 | PR ---
[place], [place] PROGRESS NOTE [id number] UNIT #: [id number] ROOM: 504 DOCTOR: REY MARSHALL MD BIRTHDATE: [birth year] DOS: 09/14/2017 SUBJECTIVE: The patient seen today with [id number] encounter. History was confirmed. Physical exam was performed. All the labs were reviewed. The assessment and management for today's visit were personally made as well. Note done by the medical charge entry specialist was approved. The patient underwent successful biopsy of the left upper lung mass by Dr. Kelley yesterday without any complications. She reported reduction in the respiratory symptom gradually. Shortness of breath has been noted. There were no symptoms of wheezing or chest pain. PHYSICAL EXAMINATION: VITAL SIGNS: Noted as a normal temperature, respiratory rate 20, heart rate 89, blood pressure 153/83, pulse, oxygen saturation on 3 liters nasal cannula was 100% saturation recorded. HEENT: Examination shows no acute change. LUNGS: Noted mild expiratory wheezing. Exam of lungs was noted without any crackles. ABDOMEN: Soft, nontender. EXTREMITIES: Without any edema. LABORATORY DATA: BMP of the patient noted normal. The results of the biopsy of the lung mass was pending. CBC today, WBC count 21.5, platelet count elevated at 568. IMPRESSION: Gradual resolution of acute exacerbation of chronic obstructive pulmonary disease, acute bronchitis with Stenotrophomonas maltophilia resistant to the Bactrim, but sensitive to fluoroquinolones, which is already administered. Metastatic malignancy was suspected with pending diagnosis after the biopsy. PLAN OF TREATMENT: The patient could be sent home on tapering dose of prednisone, antibiotics as Levaquin. Outpatient followup already scheduled in my office to discuss the finding of the current biopsy results. Additional treatment changes to be made for this patient based on the progression of the illness. [place], [place] PROGRESS NOTE NAME: SCOTT HUYNH UNIT #: [id number] ROOM: 504 DOCTOR: REY MARSHALL MD BIRTHDATE: [birth year] REY VIZCARRA MD CM:PNTRANS [id number] REY RAMOS MD 09/14/17 1214 interface
--- NOTE | ~2017-09-09 | PR ---
[place], [place] PROGRESS NOTE [id number] UNIT #: [id number] ROOM: 504 DOCTOR: CARMITA RAMOS MD,REY BIRTHDATE: [birth year] DOS: 09/13/2017 SUBJECTIVE: He has been noted comfortable at this time without any distress. The patient has not been noted with any symptoms of chest pain. The cough has been noted mild intermittently. Shortness of breath was still described with the wheezing, but it was partially decreased from yesterday. He has been scheduled for needle aspiration biopsy of the left upper lung mass. OBJECTIVE: VITAL SIGNS: Normal temperature, respiratory rate 20, heart rate 97, blood pressure 148/70. The pulse oxygen saturation on 3 liters nasal canula is 95% saturation. HEENT: Examination, no acute change. NECK: Supple. CARDIOVASCULAR: S1, S2 audible. LUNGS: Moderate decreased breath sounds with expiratory wheezing. No crackles. ABDOMEN: Soft, nontender. LABORATORY DATA: CBC today: WBC count 20.7, hemoglobin 12.8, hematocrit 40.3, platelet count 683,000. BMP was noted with normal BUN and creatinine. CO2 of 38. IMPRESSION: 1. Acute Stenotrophomonas maltophilia. The patient noted resistant to Bactrim, currently treated with the fluoroquinolones with acute bronchitis and exacerbation of chronic obstructive pulmonary disease. 2. Metastatic cancer of the lung, the patient was also suspected, which required biopsy confirmation. PLAN OF TREATMENT: Proceed with a CT-guided needle aspiration biopsy. Monitoring leukocytosis and continue other care, plan of management. REY VIZCARRA MD CM:PNTRANS [id number] REY RAMOS MD 09/14/17 0016 interface
--- NOTE | ~2017-09-09 | CON ---
[place], [place] REPORT OF CONSULTATION NAME: SCOTT HUYNH [facility] #: [id number] UNIT #: [id number] ROOM: 504 DOCTOR: CARMITA RAMOS MDREY BIRTHDATE: [birth year] DOS: 09/10/2017 CONSULTATION REQUESTED BY: Hospice service. REASON FOR CONSULTATION: Assessment of the current shortness of breath and other symptoms with exacerbation and currently known mass of the right upper lobe. HISTORY OF PRESENT ILLNESS: A 67-year-old white male who has been known to me. He has been noted with history of advanced centrilobular emphysema, chronic severe hypoxic respiratory failure, suspected with a malignancy which was involving the left upper lobe with destruction of the first and the second ribs with invasion secondary to malignancy. He was planned for biopsy to be done coming week for further assessment. PET scan was already completed, which was noted severely abnormal. He presented to the hospital Emergency Room. Yesterday, the patient developed symptoms of increased shortness of breath. Shortness of breath has been noted with gradual worsening associated with some cough without any sputum expectoration. The cough noted later on to be increased. He was also noted with wheezing which is occurring at rest. The patient denies symptoms of hemoptysis; chest pain on the left side, which has been noted, currently being treated with the pain management. REVIEW OF SYSTEMS: CONSTITUTIONAL SYMPTOMS: Fatigue and tiredness reported without symptoms of fever or chills. EYES: Denies any burning, redness, or tenderness. EARS, NOSE, THROAT SYMPTOMS: No sore throat, hoarseness, otalgia, postnasal drainage or epistaxis. CARDIOVASCULAR: Denies anginal pain, edema or pain of the lower extremity. GASTROINTESTINAL: Denies any symptoms of dysphagia, nausea, vomiting, diarrhea, abdominal pain, hematemesis, or melena. History of weight loss was noted. SKIN: Denies lesions or rashes. MUSCULOSKELETAL: The patient denies any acute joint pain, but reported pain in the left upper chest. CENTRAL NERVOUS SYSTEM: Denies dizziness, headache, diplopia, syncopal episode. SKIN: No lesions or rashes. PAST MEDICAL HISTORY: 1. History of end-stage COPD with centrilobular emphysema. 2. Chronic hypoxic respiratory failure requiring use of oxygen 2 liter nasal cannula. 3. Suspected malignancy of the lung most likely adenocarcinoma. 4. 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 The PET scan was noted abnormal with significant elevated SUV. The patient was also noted additional 9 mm nodule in the left lower lobe with SUV of 5.6 in 1.1 cm nodule in the right upper lung, which showed minimal uptake of SUV as 1.1. 5. History of essential hypertension. 6. Anxiety disorder. [place], [place] REPORT OF CONSULTATION NAME: SCOTT HUYNH UNIT #: [id number] ROOM: [facility] DOCTOR: REY MARSHALL MD BIRTHDATE: [birth year] SOCIAL HISTORY: He is and has 2 children. Denies history of alcohol use, illicit drug use. He has worked for 4 years in the [employer]. He was noted history of tobacco use ____ pack of cigarettes per day that was discontinued in 06/2017. FAMILY HISTORY: Father age of 58 years of complication of myocardial infarction. Mother at 70 years old, complication of COPD. MEDICATIONS: The current list of medication noted use of albuterol sulfate with nebulizer, Xanax, amlodipine, Brovana, aspirin, doxycycline, Flovent, [place], losartan, nicotine patches, tapering prednisone and other p.r.n. medications administration. DRUG ALLERGY HISTORY: The patient was noted as no known allergies. PHYSICAL EXAMINATION: GENERAL: A 67-year-old male who has been currently noted to be awake and alert. Height of 5 feet 9 inches, weight of 183 pounds with BMI of 27.0. VITAL SIGNS: Recorded showed normal temperature, respiratory rate 18-20, highest respiratory rate noted 32 on admission. The heart rate ranged between 99-116, sinus tachycardia at times. The blood pressure 148/66-159/78. The pulse oxygen saturation 3 liters nasal cannula 97% saturation. HEENT: Examination shows head was atraumatic. Eyes nonicterus. NECK: Supple. CARDIOVASCULAR: S1, S2 audible. LUNGS: Decreased breath sounds were noted in the lungs with diffuse expiratory wheezing. There were no crackles. ABDOMEN: Soft, flat, nontender, bowel sounds present. CENTRAL NERVOUS SYSTEM: The patient's cranial nerves 2-12 intact. No focal deficit. MUSCULOSKELETAL: No deformity. SKIN: No lesions or rashes. LABORATORY DATA: Arterial blood gas yesterday in the Emergency Room 3 liters, pH of 7.41, pCO2 of 50, pO2 of 113. The lactic acid yesterday noted normal. CBC yesterday, WBC count 11.2, hemoglobin 11.5, hematocrit 36.7, platelet count was 549,000. CMP 09/09/2017 was noted as normal. The PT, PTT done on 09/10/2017 was normal. The CMP this morning except mild elevation of glucose noted with CO2 of 33. Other electrolytes and BUN and creatinine normal. CBC, mild anemia, otherwise remains normal. The patient had a CTA of the chest that was ordered by the primary care physician was completed and noted as mild increase in size of the mass. The left upper lung mass in the apex measuring 7.6 x 7.5 cm in the size. The previous SUV with a PET scan was recently performed at [facility] noted as SUV of 17. The 1st, 2nd and 3rd rib involvement was noted with the current malignancy. ____ nodule noted in the left midlung 0.6 mm and other nodules and emphysema changes remains the same. IMPRESSION: 1. The patient who has been currently admitted to the hospital noted with recurrent acute exacerbation of chronic obstructive pulmonary disease with acute [place], [place] REPORT OF CONSULTATION NAME: SCOTT HUYNH UNIT #: [id number] ROOM: [facility] DOCTOR: REY MARSHALL MD BIRTHDATE: [birth year] bronchitis. 2. The patient with current suspected malignancy of the lung with metastatic cancer would be considered. 3. History of advanced centrilobular emphysema as well. 4. History of essential hypertension, general anxiety disorder. 5. Pain in the chest related to current malignancy and destruction of the ribs. PLAN OF MANAGEMENT: Agree with the use of Solu-Medrol. Discontinue all the multiple broad spectrum intravenous antibiotics that started including Zosyn and vancomycin, just simply use Levaquin for the medical management of acute bronchitis. There was no evidence of pneumonia. Continue Solu-Medrol 60 mg b.i.d. Biopsy to be done in this hospital be ordered during this hospitalization. Oncology consultation will be obtained as well later on. Pain management. Other supportive therapy, plan of management. Anxiolytics as well. Usual care. Additional treatment changes will be ordered based on the progression of the illness. REY VIZCARRA MD CM:CONSTR:REPORT OF CONSULTATION 1252 09/11/17 0116 interface
--- NOTE | ~2017-09-09 | PR ---
[place], [place] PROGRESS NOTE [id number] #: [id number] ROOM: 504 DOCTOR: REY MARSHALL MD BIRTHDATE: [birth year] DOS: 09/11/2017 SUBJECTIVE: The patient was seen and examined on 09/11/2017, has been noted comfortable reduction in shortness of breath from yesterday, but described there were no symptoms of chest pain or hemoptysis. He has been continued on corticosteroids, bronchodilators, and other treatment as previously. OBJECTIVE: VITAL SIGNS: For the patient which has been recorded showed normal temperature, respiratory rate 22, heart rate 116, blood pressure 144/72. Intake for the patient 2.460 liter output 3200 mL ____ mL. Pulse oxygen saturation 3 liters nasal cannula 94% saturation. HEENT: Examination shows no acute change. NECK: Supple. CARDIOVASCULAR: S1, S2 is audible. LUNGS: The patient was noted with moderate decreased breath sounds with expiratory wheezing, partially decreased from previous examination. ABDOMEN: Soft, flat, nontender, bowel sounds present. EXTREMITIES: Show no edema. LABORATORY DATA: The culture of the sputum showed normal parveen from 09/10/2017. The Gram stain was reviewed and reported as many white blood cells, moderate epithelial cells, few gram-positive, gram-negative bacilli, few gram-positive cocci in chains and clusters. IMPRESSION: 1. The patient metastatic suspected cancer in the left lung, involvement of the first, second and the third rib with destruction. Chest pain related to that. 2. The patient with recurrent acute exacerbation of chronic obstructive pulmonary disease and acute bronchitis, currently responding to the treatment. PLAN OF TREATMENT: Continuation of the bronchodilators, oxygen supplementation, antibiotics, and corticosteroids current dose. The biopsy of the patient on the left upper lung mass. The patient has been ordered to be done by the radiologist during the current hospitalization with CT guidance. In the meantime, I will optimize the respiratory status. Usual care. [place], [place] PROGRESS NOTE NAME: SCOTT HUYNH UNIT #: [id number] ROOM: 504 DOCTOR: REY MARSHALL MD BIRTHDATE: [birth year] REY VIZCARRA MD CM:PNTRANS 1343 REY RAMOS MD 09/12/17 0039 interface
--- NOTE | ~2017-09-09 | PR ---
[place], [place] PROGRESS NOTE NAME: SCOTT HUYNH [facility] #: [id number] UNIT #: [id number] ROOM: 504 DOCTOR: ASIYA URIBE DO BIRTHDATE: [birth year] DOS: 09/14/2017 SUBJECTIVE: The patient was seen and evaluated today. He states he feels improved, wants to go home, but still reports very short of breath, but not so far from his baseline. He denies any chest pain, nausea, vomiting or worsening in his respiratory state. He had a biopsy done yesterday, which showed likely non-small cell carcinoma. This was discussed with the patient. The patient verbalized understanding and questions were answered and this was in the presence of his significant other. Her questions were also answered. The patient verbalized understanding of the diagnosis. He was told that any further questions or details can be provided by Dr. Vizcarra when he follows up with him in the office setting. OBJECTIVE: VITAL SIGNS: Respiratory rate 20, heart rate 89, blood pressure 153/83 and oxygen saturation is 100% on 3 liters nasal cannula. HEENT: No changes. LUNGS: Some wheezes with decreased breath sounds, but no crackles. ABDOMEN: Soft, nontender, nondistended. EXTREMITIES: Without any edema. LABORATORY DATA: Biopsy did show non-small cell carcinoma. White blood count is 21, hemoglobin is 12.9, hematocrit 39.4 and platelets 568. Sodium 140, potassium 4.8, chloride 99, carbon dioxide 36, BUN 24, creatinine 0.59, estimated GFR is more than 60. IMPRESSION AND PLAN: 1. Gradual improvement in exacerbation of chronic obstructive pulmonary disease with overlying chronic bronchitis with Stenotrophomonas maltophilia, resistant to the Bactrim. Continue with the Levaquin for that, this can be continued for 10 days. The patient will also need to follow up with Dr. Vizcarra on Tuesday the , which is 4 days from now. 2. Suspected non-small cell carcinoma from the report on the pulmonary mass. We will discuss further treatment options with the patient on an outpatient basis, otherwise the patient can be discharged today with Levaquin for 10 days and steroids and see Dr. Vizcarra on Tuesday the . AMER BLEIBEL, DO [place], [place] PROGRESS NOTE NAME: [place] UNIT #: [id number] ROOM: [facility] DOCTOR: ASIYA URIBE DO BIRTHDATE: [birth year] REY VIZCARRA MD CM:JAYLEN 26 ASIYA URIBE DO 09/14/172028 interface
--- NOTE | ~2017-09-09 | PR ---
[place], [place] PROGRESS NOTE NAME: [facility] [id number] UNIT #: [id number] ROOM: 504 DOCTOR: CARMITA RAMOS MD,REY BIRTHDATE: [birth year] DOS: 09/12/2017 SUBJECTIVE: He has been noted comfortable at this time, still noted symptoms of shortness of breath with some cough, which was noted nonproductive. Denies symptoms of chest pain or abdominal pain. He has been ordered biopsy of the left upper lung mass, which was scheduled to be done tomorrow morning, based on the availability of the Invasive Radiology services. OBJECTIVE: VITAL SIGNS: The patient showed normal temperature, respiratory rate 21, heart rate of 113-90, blood pressure 144/84. Pulse oxygen saturation recorded as 97% on 3 liters cannula. HEENT: Showed no acute change. NECK: Supple. CARDIOVASCULAR: S1, S2 is audible. LUNGS: Noted with moderate decreased breath sounds with expiratory wheezing, remains about the same as of yesterday. ABDOMEN: Soft, nontender. LABORATORY DATA: The culture of the sputum for the patient noted Stenotrophomonas maltophilia, mild growth of which are noted essentially reported resistant to the Bactrim, but sensitive to the Levaquin. CBC today: WBC count 19.9, hemoglobin 12.3, hematocrit 39.2, platelet count was recorded 615,000. BMP of patient that was done this morning was noted as normal BMP, except CO2 of 36, mildly elevated. IMPRESSION: 1. Stable acute exacerbation of chronic obstructive pulmonary disease, acute tracheobronchitis Stenotrophomonas maltophilia resistant to the Bactrim sulfate, but noted sensitive to fluoroquinolones. 2. Left upper lung, suspected cancer patient, metastases of the patient involving the 1st, 2nd and 3rd rib as well. 3. Past history of nicotine abuse. 4. Stable chronic hypoxic respiratory failure. PLAN OF TREATMENT: The patient already getting the Levaquin, which will be continued as primary antibiotic for the management of current acute pulmonary infection. Proceed with the procedure as CT-guided needle aspiration biopsy tomorrow. In the meantime, continue the patient on the previous therapy plan of management. Monitor leukocytosis. Supportive therapy, plan of management, other care and treatment plan, and usual care. [place], [place] PROGRESS NOTE NAME: SCOTT HUYNH UNIT #: [id number] ROOM: [facility] DOCTOR: REY MARSHALL MD BIRTHDATE: [birth year] REY VIZCARRA MD CM:PNTRANS [id number] REY RAMOS MD 09/12/17 2333 interface
[~2017-09-09 17:23] MED LIST changes: +DOXYCYCLINE MO100 M1 PO; +NICODERM CQ1 EAC2 TD; +NICODERM T; +XANAX0.25 MG PO
[2017-09-09 17:27] VITALS: BP 148/66
[2017-09-09 17:47] LABS: ABG BASE EXCESS 6.3 mmol/L (-2.0-2.0); ABG HCO3 31.8 mmol/l (22-26); ABG O2 SATURATION 98.6 % (95-97); ARTERIAL BLOOD GAS PCO2 50.4 mmHg (35-45); ARTERIAL BLOOD GAS PH 7.413 (7.35-7.45)
[2017-09-09 18:08] LABS: BASO # 0.1 10*3/uL (0.0-0.1); BASO % 0.4 % (0.0-1.0); EOS # 0.3 10*3/uL (0.0-0.4); EOS % 2.3 % (1.0-4.0); HEMATOCRIT 36.7 % (42.0-52.0); HEMOGLOBIN 11.5 g/dl (14.0-18.0); LYMPH # 1.8 10*3/uL (1.3-4.4); LYMPH % 16.5 % (27.0-41.0); MEAN CELL VOLUME 96.1 fl (80.0-94.0); MEAN CORPUSCULAR HGB 30.1 pg (27.0-31.0); MEAN CORPUSCULAR HGB CONC 31.3 g/dl (33.0-37.0); MEAN PLATELET VOLUME 9.1 fl (9.6-12.3); MONO # 0.7 10*3/uL (0.1-1.0); NEUT # 8.3 10*3/uL (2.3-7.9); NEUT % 74.2 % (47.0-73.0); PLATELET COUNT AUTOMATED 549 10*3/uL (130-400); RED BLOOD COUNT 3.82 10*6/uL (4.50-5.90); RED CELL DISTRI WIDTH 13.4 % (0-14.5); WHITE BLOOD COUNT 11.2 10*3/uL (4.8-10.8)
[2017-09-09 18:26] LABS: ALBUMIN 3.4 gm/dl (3.1-4.5); ALKALINE PHOSPHATASE 86 U/L (45-117); BUN 13 mg/dl (7-24); CHLORIDE 102 mmol/L (98-107); CREATININE 0.56 mg/dL (0.70-1.30); POTASSIUM 4.2 mmol/L (3.5-5.1); SGOT/AST 16 IU/L (3-35); SGPT/ALT 22 U/L (12-78); SODIUM 138 mmol/L (136-145); TOTAL PROTEIN 7.1 gm/dL (6.4-8.2)
[2017-09-09 18:28] LABS: TROPONIN I < 0.015 ng/ml (<0.045)
[2017-09-09 18:33] VITALS: BP 143/62
[2017-09-09 19:30] VITALS: BP 145/63; BP 145/83
--- NOTE | 2017-09-09 20:32 | NUR ---
A 67, admitted to 5E, under the services of BERTIN Phelan DO with a diagnosis of COPD EXACERBATION. Chief complaint is SOB. Patient arrived via stretcher from ER. Monitor applied. Initial assessment completed. Vital signs taken and recorded. BERTIN PHELAN DO notified of admission to the unit. Orders received. See assessment for past medical history, medications and allergies. Patient and/or family oriented to unit. [address] visitation policy reviewed. Clothing/patient valuable form completed. EDUARDO GROVES
[2017-09-09 21:53] LABS: BILIRUBIN NEGATIVE (NEGATIVE); BLOOD TRACE-LYSED (NEGATIVE); CLARITY CLEAR (CLEAR); COLOR YELLOW (YELLOW); GLUCOSE NEGATIVE (NEGATIVE); KETONE 2+ (NEGATIVE); LEUKO ESTERASE NEGATIVE (NEGATIVE); NITRITE NEGATIVE (NEGATIVE); UROBILINOGEN 0.2 E.U./dl (0.2-1.0)
[2017-09-09 22:01] LABS: BACTERIA 1+; EPITHELIAL CELLS 0-2; WBC 0-2 wbc/hpf (0-5)
--- NOTE | 2017-09-09 23:55 | NUR ---
PATIENT STATES HE DOESNT KNOW HIS DRUGS WELL ENOUGH TO VERIFY THEM. WE WILL CONTACT [facility] IN THE MORNING TO CONDUCT MED REC.
[2017-09-10] VITALS: BP 154/57
--- NOTE | 2017-09-10 00:48 | NUR ---
PT COMPLAINED OF PAIN AND THAT HE WAS UNABLE TO SLEEP. HE WAS TOLD HIS NEXT NORCO WAS NOT DUE TILL 0200 HOWEVER HE COULD HAVE A RISTIRIL TO HELP HIM SLEEP. PT AGREED TO TRY THIS AND CALL IN APPROX AN HOUR IF IT WAS STILL BOTHERING HIM.
--- NOTE | 2017-09-10 02:23 | NUR ---
GIVEN PRN NORCO FOR LEG AND LT AXILLARY PAIN.
[2017-09-10 03:46] LABS: HEMATOCRIT 36.5 % (42.0-52.0); HEMOGLOBIN 11.7 g/dl (14.0-18.0); MEAN CELL VOLUME 95.5 fl (80.0-94.0); MEAN CORPUSCULAR HGB 30.6 pg (27.0-31.0); MEAN CORPUSCULAR HGB CONC 32.1 g/dl (33.0-37.0); MEAN PLATELET VOLUME 8.8 fl (9.6-12.3); PLATELET COUNT AUTOMATED 545 10*3/uL (130-400); RED BLOOD COUNT 3.82 10*6/uL (4.50-5.90); RED CELL DISTRI WIDTH 13.2 % (0-14.5); WHITE BLOOD COUNT 9.2 10*3/uL (4.8-10.8)
[2017-09-10 03:56] LABS: ACT PARTIAL THROMBO TIME 26.1 SECONDS (20.8-31.5)
[2017-09-10 04:01] LABS: ALBUMIN 3.3 gm/dl (3.1-4.5); ALKALINE PHOSPHATASE 80 U/L (45-117); BUN 14 mg/dl (7-24); CHLORIDE 104 mmol/L (98-107); CREATININE 0.63 mg/dL (0.70-1.30); PHOSPHOROUS 2.3 mg/dL (2.5-4.9); POTASSIUM 4.2 mmol/L (3.5-5.1); SGOT/AST 12 IU/L (3-35); SGPT/ALT 20 U/L (12-78); SODIUM 141 mmol/L (136-145); TOTAL PROTEIN 6.9 gm/dL (6.4-8.2)
[2017-09-10 04:03] LABS: FREE T4 1.12 ng/dl (0.76-1.46)
[2017-09-10 04:08] LABS: THYROID STIM HORMONE (HS) 0.208 uIU/ml (0.358-4.75)
[2017-09-10 04:11] LABS: ATYPICAL LYMPHS 1 % (0-0); PLATELET SUFFICIENCY HIGH (NORMAL); TOTAL CELLS COUNTED 100 #CELLS
--- NOTE | 2017-09-10 06:32 | NUR ---
DR. VIZCARRA CONTACTED FOR A CONSULT FOR COPD EXACERBATION.
[2017-09-10 08:00] VITALS: BP 159/78
--- NOTE | 2017-09-10 08:00 | NUR ---
RESTING QUIETLY IN BED, SPUTUM COLLECTED AND SENT TO LAB. HOB ELEVATED WITH O2 ON. PT SOB WITH MINIMAL EXERTION LIKE SITTING UP IN BED. SEE SHIFT ASSESSMENT.
[2017-09-10 08:23] LABS: VITAMIN D, 25-HYDROXY 31.2 ng/mL (30-100)
--- NOTE | 2017-09-10 09:35 | NUR ---
CALL [facility] BLOOR FOR PT MED LIST, THEY ARE FAXING LIST OVER.
[2017-09-10] MEDS ORDERED: NICODERM CQ1 EAC2 TD (10:19)
[2017-09-10] MEDS ORDERED: POTASSIUM CHLO10 MEQ PO (10:30)
[2017-09-10] MEDS ORDERED: LASIX20 MG PO (10:30)
[2017-09-10] MEDS ORDERED: Motrin,Rufen800 MG PO (10:32)
[2017-09-10] MEDS ORDERED: VITAMIN D-32000 UNI1 PO (10:33)
[2017-09-10] MEDS ORDERED: Ipratropium Brom3 ML INH (10:36)
[2017-09-10] MEDS ORDERED: BREO ELLIPTA 11 EACH INH (10:37)
[2017-09-10] MEDS ORDERED: ANORO ELLIPTA1 EACH IA (10:38)
--- NOTE | 2017-09-10 10:54 | NUR ---
MEDICATED PO NORCO FOR C/O ALL OVER PAIN. RATES PAIN 6/10. WILL CONTINUE TO MONITOR.
--- NOTE | 2017-09-10 11:20 | NUR ---
RESTING QUIETLY WITH NO FURTHER C/O AT THIS TIME.
[2017-09-10] MEDS ORDERED: XANAX0.25 MG PO (11:44)
[2017-09-10] MEDS ORDERED: NORCO 7.5-3251 EACH PO (11:45)
[2017-09-10 12:00] VITALS: BP 141/65
[2017-09-10 16:00] VITALS: BP 149/75
--- NOTE | 2017-09-10 17:37 | NUR ---
MEDICATED PO NORCO FOR C/O ALL OVER PAIN. RATES PAIN 8/10
--- NOTE | 2017-09-10 18:03 | NUR ---
MEDICATED PO XANAX FOR C/O ANXIETY.
[2017-09-10 20:00] VITALS: BP 127/64
--- NOTE | 2017-09-10 20:20 | NUR ---
PT. AWAKE, ALERT AND ORIENTED X 3. PT. IN BED AT THIS TIME. PT. C/O SOB, STATED THAT HE IS TYPICALLY SOB AT HOME D/T HX. COPD. CURRENTLY ON 3L NC. PT. CURRENTLY DENIES CP. CALL LIGHT FOR ASSISTANCE, BED IN LOWEST POSITION, WHEELS LOCKED. SEE SHIFT ASSESSMENT.
--- NOTE | 2017-09-10 21:47 | NUR ---
PT. REQUESTED NORCO AT THIS TIME FOR PAIN TO LEFT RIBS RATED 8/10. WILL MONITOR FOR EFFECTIVENESS.
--- NOTE | 2017-09-10 22:30 | NUR ---
PT. STATED THAT PAIN MED WAS EFFECTIVE AT THIS TIME.
[2017-09-11] VITALS: BP 136/65
--- NOTE | 2017-09-11 01:58 | NUR ---
PT. REQUESTED NORCO FOR GENERALIZED PAIN 06/02 AND RESTORIL FOR INSOMNIA AT THIS TIME. PT. STATED NO ADVERSE EFFECTS FROM RESTORIL AFTER RECEIVING THE MED YESTERDAY. WILL MONITOR FOR EFFECTIVENESS.
--- NOTE | 2017-09-11 06:22 | NUR ---
24 HR CHART CHECK COMPLETE
--- NOTE | 2017-09-11 06:25 | NUR ---
PT. REQUESTED NORCO AT THIS TIME FOR PAIN 06/02
[2017-09-11 08:00] VITALS: BP 156/74
--- NOTE | 2017-09-11 08:00 | NUR ---
SITTING ON SIDE OF BED EATING BREAKFAST. HOB ELEVATED WITH O2 ON. PT STATES SHE FEELS A LITTLE BETTER TODAY. EDEMA OF LEGS AND FEET. TUBI PUBLIC AFFAIRS DIRECTOR ON. WILL CONTINUE TO MONITOR.
--- NOTE | 2017-09-11 10:42 | NUR ---
MEDICATED PO XANAX FOR C/O ANXIETY.
--- NOTE | 2017-09-11 11:30 | NUR ---
RESTING QUIETLY WITH EYES CLOSED.
--- NOTE | 2017-09-11 11:43 | NUR ---
RESTING QUIETLY WITH EYES CLOSED.
[2017-09-11 12:00] VITALS: BP 144/72
--- NOTE | 2017-09-11 13:17 | NUR ---
C/O PAIN 10/10 TO LEFT SIDE PER PT. NORCO GIVEN AT THIS TIME. WILL CONT TO MONITOR. CALL LIGHT IN REACH.
[2017-09-11 16:00] VITALS: BP 151/87
--- NOTE | 2017-09-11 16:24 | NUR ---
RESTING QUIETLY IN BED, NO DISTRESS AT THIS TIME.
--- NOTE | 2017-09-11 16:44 | NUR ---
MEDICATED PO XANAX FOR C/O ANXIETY.
--- NOTE | 2017-09-11 19:45 | NUR ---
PATIENT AWAKE, SITTING UP ON SIDE OF BED AT THIS TIME. SOME SOB NOTED. PATIENT IS 95% ON 3L. RESPIRATORY IN ROOM TO ADMINISTER BREATHING TREATMENT. PATIENT UPDATED ON PLAN OF CARE AND EDUCATED ABOUT NPO STATUS AFTER MIDNIGHT. WILL MONITOR PATIENT. CALL LIGHT USE ENCOURAGED.
[2017-09-11 20:00] VITALS: BP 160/71
[2017-09-12] VITALS: BP 135/65
--- NOTE | 2017-09-12 00:09 | NUR ---
PATIENT MEDICATED WITH PO NORCO AND PO RESTORIL PER PRN ORDER FOR C/O CHRONIC LEFT SIDED NECK/BACK PAIN 08/02 AND SLEEPLESSNESS. EDUCATED ABOUT NPO STATUS AFTER MIDNIGHT. PATIENT VERBALIZES UNDERSTANDING. WILL MONITOR. CALL LIGHT LEFT IN REACH.
--- NOTE | 2017-09-12 00:59 | NUR ---
EARLIER MEDICATION APPEARS EFFECTIVE. PATIENT ASLEEP IN BED. RESPIRATIONS EASY. NO S/S OF DISTRESS NOTED. ON 3L NC. WILL CONTINUE TO MONITOR. CALL LIGHT LEFT IN REACH.
[2017-09-12 07:00] LABS: BASO % 0.1 % (0.0-1.0); HEMATOCRIT 39.2 % (42.0-52.0); HEMOGLOBIN 12.3 g/dl (14.0-18.0); LYMPH # 1.3 10*3/uL (1.3-4.4); LYMPH % 6.7 % (27.0-41.0); MEAN CELL VOLUME 96.3 fl (80.0-94.0); MEAN CORPUSCULAR HGB 30.2 pg (27.0-31.0); MEAN CORPUSCULAR HGB CONC 31.4 g/dl (33.0-37.0); MEAN PLATELET VOLUME 8.8 fl (9.6-12.3); MONO # 0.7 10*3/uL (0.1-1.0); MONO % 3.6 % (3.0-9.0); NEUT # 17.7 10*3/uL (2.3-7.9); NEUT % 88.5 % (47.0-73.0); PLATELET COUNT AUTOMATED 615 10*3/uL (130-400); RED BLOOD COUNT 4.07 10*6/uL (4.50-5.90); RED CELL DISTRI WIDTH 13.8 % (0-14.5); WHITE BLOOD COUNT 19.9 10*3/uL (4.8-10.8)
[2017-09-12 07:27] LABS: BUN 16 mg/dl (7-24); CHLORIDE 101 mmol/L (98-107); CREATININE 0.56 mg/dL (0.70-1.30); POTASSIUM 4.1 mmol/L (3.5-5.1); SODIUM 142 mmol/L (136-145)
[2017-09-12 08:00] VITALS: BP 144/84
--- NOTE | 2017-09-12 08:15 | NUR ---
PT SITTING UP AT BEDSIDE. PT SOB WITH MINIMAL EXERTION. C/O LEFT SIDE NECK/SHOULDER/RIB PAIN, RATES PAIN 10 ON PAIN SCALE 0-10. MEDICATED WITH NORCO PO PER PRN ORDER, SEE EMAR. OXYGEN IN USE. CALL LIGHT IN REACH. SEE SHIFT ASSESSMENT. PT HAS TUBI MEDICAL RESEARCH TECH ON BILATERAL LEGS. REFUSES TEDS.
--- NOTE | 2017-09-12 09:00 | NUR ---
Counter Clerk [employer] in to talk to patient. Patient states lives at home with alone. There are no steps in the home. Physician: ann aponte Pharmacy: [facility] Home health services: [facility] 3 days a week Patient's level of ADLs: MINIMAL ASSIST Patient has working utilities: all working DME: life alert bracelet, cane, hospital bed, nebulier, home oxygen and portable tanks from [facility], motorized wheelchair, Follow-up physician's appointment after d/c: will be made by hospitalist nurse director upon discharge Does patient want to access PORTAL?: no Discharge plan discussed with patient, patient lives in [facility] alone, he states he is independent in adls, has an aid from [facility] 3 days a week, he also has all of the equpment he needs at home, discussed with him going to a short term intermediate prior to going back home and patient refused, stated he was going back home, also discussed VNA with nursing and pt, patient was receptive to this, will notify [facility] when patient is medically stable for discharge. MISTY LOCO
--- NOTE | 2017-09-12 09:04 | NUR ---
SPOKE WITH DR. VIZCARRA AWARE CT GUIDED BIOPSY WON'T BE UNTIL TOMORROW.
--- NOTE | 2017-09-12 11:05 | NUR ---
PT REQUESTING XANAX FOR ANXIETY. SEE EMAR. OXYGEN IN USE. CALL LIGHT IN REACH.
[2017-09-12 12:00] VITALS: BP 157/76
--- NOTE | 2017-09-12 12:30 | NUR ---
RESTING IN BED OXYGEN IN USE. NO C/O AT THIS TIME. CALL LIGHT IN REACH.
--- NOTE | 2017-09-12 14:31 | NUR ---
PT SITTING UP AT SIDE OF BED. C/O LEFT SIDE NECK/SHOULDER AND RIB PAIN, RATES PAIN 10 ON PAIN SCALE 0-10. MEDICATED WITH DILAUDID IV PER ONE TIME ORDER, SEE EMAR. CALL LIGHT IN REACH.
--- NOTE | 2017-09-12 14:46 | NUR ---
PT SITTING UP IN BED STATES PAIN MEDICATION HELPED. CALL LIGHT IN REACH.
--- NOTE | 2017-09-12 15:42 | NUR ---
[facility]WONA RECEIVED NOTICE THAT PT WAS A CLIENT OF [facility] PRIOR TO ADMISSION. IWONA FAXED UPDATED INFORMATION TO [facility].
[2017-09-12 16:00] VITALS: BP 152/70
--- NOTE | 2017-09-12 16:10 | NUR ---
RESTING IN BED. RESP-EASY AND REGULAR. NO C/O AT THIS TIME. OXYGEN IN USE. CALL LIGHT IN REACH. SEE SHIFT ASSESSMENT
[2017-09-12 20:00] VITALS: BP 134/77
--- NOTE | 2017-09-12 20:54 | NUR ---
PATIENT MEDICATED WITH PO XANAX PER PRN ORDER FOR C/O ANXIOUSNESS. WILL MONITOR EFFECTIVENESS. CALL LIGHT LEFT IN REACH.
--- NOTE | 2017-09-12 21:18 | NUR ---
SPOKE TO AT THIS TIME REGARDING PATIENT'S SOB, PATIENT HAS BEEN SOB AT REST AND WITH EXERTION, BUT STATES HE IS REALLY STRUGGLING TO CATCH HIS BREATH. I/E WHEEZES HEARD UPON AUSCULTATION OF LUNG HOFFMANN. PO XANAX ADMINISTERED AT 2053 FOR PATIENT'S C/O ANXIETY. PATIENT STATES XANAX HAS NOT BEEN EFFECTIVE THUS FAR. PER , GIVE PO XANAX MORE TIME TO WORK WHILE MONITORING PATIENT AND HIS PULSE OX. POX CURRENTLY 94% ON 3L NC. WILL CONTINUE TO MONTIOR PATIENT ORDERED.
--- NOTE | 2017-09-12 21:50 | NUR ---
PATIENT STATES EARLIER XANAX HAS HELPED HIM CALM DOWN. PATIENT STATES HE THINKS HIS BREATHING IS MUCH BETTER. PATIENT STILL NOTICEABLY SOB, BUT NOTHING BEYOND HIS NORMAL. WILL CONTINUE TO MONITOR PATIENT. CALL LIGHT LEFT IN REACH.
--- NOTE | 2017-09-12 22:19 | NUR ---
PO RESTORIL ADMINISTERED PER PRN ORDER FOR C/O SLEEPLESSNESS. WILL MONITOR EFFECTIVENESS. CALL LIGHT LEFT IN REACH.
[2017-09-13] VITALS (11 sets, daily range): BP systolic 108–160; BP diastolic 62–90
--- NOTE | 2017-09-13 00:06 | NUR ---
PO NORCO ADMINISTERED PER PRN ORDER FOR C/O LEFT SIDED BACK/NECK/RIB PAIN 08/02. WILL MONITOR EFFECTIVENESS. CALL LIGHT LEFT IN REACH.
--- NOTE | 2017-09-13 00:46 | NUR ---
EARLIER MEDICATIONS APPEAR EFFECTIVE. PATIENT ASLEEP IN BED AT THIS TIME. WILL MONITOR. CALL LIGHT LEFT IN REACH.
--- NOTE | 2017-09-13 05:37 | NUR ---
PATIENT MEDICATED WITH PRN NORCO ORDERED FOR C/O LEFT SIDED PAIN RATED A 10/10
[2017-09-13 07:14] LABS: HEMATOCRIT 40.3 % (42.0-52.0); HEMOGLOBIN 12.8 g/dl (14.0-18.0); MEAN CELL VOLUME 98.1 fl (80.0-94.0); MEAN CORPUSCULAR HGB 31.1 pg (27.0-31.0); MEAN CORPUSCULAR HGB CONC 31.8 g/dl (33.0-37.0); MEAN PLATELET VOLUME 8.8 fl (9.6-12.3); PLATELET COUNT AUTOMATED 683 10*3/uL (130-400); RED BLOOD COUNT 4.11 10*6/uL (4.50-5.90); RED CELL DISTRI WIDTH 13.8 % (0-14.5); WHITE BLOOD COUNT 20.7 10*3/uL (4.8-10.8)
[2017-09-13 07:38] LABS: PLATELET SUFFICIENCY HIGH (NORMAL); TOTAL CELLS COUNTED 100 #CELLS
[2017-09-13 07:48] LABS: BUN 19 mg/dl (7-24); CHLORIDE 100 mmol/L (98-107); SODIUM 143 mmol/L (136-145)
[2017-09-13 07:50] LABS: CREATININE 0.52 mg/dL (0.70-1.30)
--- NOTE | 2017-09-13 08:15 | NUR ---
PT RESTING IN BED. RESP-EASY AND REGULAR. WAITING FOR CT FOR TEST. OXYGEN IN USE. NO C/O AT THIS TIME. CALL LIGHT IN REACH. SEE SHIFT ASSESSMENT.
--- NOTE | 2017-09-13 09:00 | NUR ---
case management visits with patient, patient will have OV see him when stable for discharge, patient denies any other home needs
--- NOTE | 2017-09-13 10:00 | NUR ---
RESTING IN BED. WAITING FOR TEST. OXYGEN IN USE. CALL LIGHT IN REACH.,
--- NOTE | 2017-09-13 12:20 | NUR ---
PT RETURNED FROM CT SITTING UP IN BED. C/O BACK PAIN WHERE HAD BIOPSY DONE. RATES PAIN 8 ON PAIN SCALE 0-10. MEDICATED WITH NORCO PO PER PRN ORDER, SEE EMAR. CALL LIGHT IN REACH.
--- NOTE | 2017-09-13 13:11 | NUR ---
PT RESTING IN BED. PT ANXIOUS AND REQUESTING XANAX AT THIS TIME. MEDICATED WITH XANAX PO PER PRN ORDER, SEE EMAR. CALL LIGHT IN REACH. OXYGEN IN USE.
--- NOTE | 2017-09-13 14:00 | NUR ---
RESTING IN BED. STATES MEDICATION HELPED. CALL LIGHT IN REACH. OXYGEN IN USE.
--- NOTE | 2017-09-13 15:52 | NUR ---
CALLED DR. COHN MADE AWARE PT C/O PAIN AND NOTHING IS DUE AT THIS TIME. HE WILL TAKE CARE OF IT.
--- NOTE | 2017-09-13 16:25 | NUR ---
PT SITTING UP AT BEDSIDE. OXYGEN IN USE. PT C/O LEFT BACK/SIDE PAIN. RATES PAIN 10 ON PAIN SCALE 0-10. MEDICATED WITH DILAUDID IV PER PRN ORDER, SEE EMAR. CALL LIGHT IN REACH. SEE SHIFT ASSESSMENT.
--- NOTE | 2017-09-13 17:00 | NUR ---
RESTING IN BED. STATES PAIN MEDICATION HELPED. CALL LIGHT IN REACH. OXYGEN IN USE.
--- NOTE | 2017-09-13 20:13 | NUR ---
PATIENT REQUESTED AND RECEIVED PRN NORCO ORDERED FOR C/O LEFT SIDED PAIN WHICH HE RATES A 10/10. HE HAS AUDIBLE WHEEZES WITH CONSTANT SOB ON 3L NC. STATES HE IS FEELING BETTER AFTER HIS BREATHING TX. TUBI HAND WRAPPER OPERATOR IN PLACE ON BLE. HE IS PLEASANT/COOPERATIVE WITH ASSESSMENT. CALL LIGHT IS IN REACH. WILL MONITOR.
--- NOTE | 2017-09-13 22:07 | NUR ---
PATIENT MEDICATED WITH PRN RESTORIL AND XANAX ORDERED FOR C/O INSOMNIA AND RESTLESSNESS. WILL MONITOR.
--- NOTE | 2017-09-13 23:57 | NUR ---
PATIENT MEDICATED WITH 1X DOSE OF DILAUDID ORDERED FOR C/O LEFT SIDED FLANK PAIN/LEFT SHOULDER PAIN RATED A 10.
[2017-09-14] VITALS: BP 146/60
[2017-09-14 06:36] LABS: HEMATOCRIT 39.4 % (42.0-52.0); HEMOGLOBIN 12.9 g/dl (14.0-18.0); MEAN CELL VOLUME 94.9 fl (80.0-94.0); MEAN CORPUSCULAR HGB 31.1 pg (27.0-31.0); MEAN CORPUSCULAR HGB CONC 32.7 g/dl (33.0-37.0); MEAN PLATELET VOLUME 9.2 fl (9.6-12.3); PLATELET COUNT AUTOMATED 568 10*3/uL (130-400); RED BLOOD COUNT 4.15 10*6/uL (4.50-5.90); RED CELL DISTRI WIDTH 13.7 % (0-14.5); WHITE BLOOD COUNT 21.5 10*3/uL (4.8-10.8)
[2017-09-14 06:55] LABS: BUN 24 mg/dl (7-24); CHLORIDE 99 mmol/L (98-107); CREATININE 0.59 mg/dL (0.70-1.30); POTASSIUM 4.8 mmol/L (3.5-5.1); SODIUM 140 mmol/L (136-145)
[2017-09-14 07:12] LABS: PLATELET SUFFICIENCY HIGH (NORMAL); TOTAL CELLS COUNTED 100 #CELLS
[2017-09-14 08:00] VITALS: BP 153/83
--- NOTE | 2017-09-14 09:00 | NUR ---
case management visits with patient, patient will be going home when able and have OV[facility], no other needs at this time
--- NOTE | 2017-09-14 10:20 | NUR ---
PER PT IS OK TO D/C HOME ON PO LEVAQUIN. NOTIFIED
--- NOTE | 2017-09-14 11:08 | NUR ---
received order for home health via [facility], faxed order and clincals for referral.
[2017-09-14] MEDS ORDERED: PREDNISONE10 MG PO ×2 (11:44→11:59)
[2017-09-14] MEDS ORDERED: LEVAQUIN750 M1 PO ×2 (11:44→11:59)
--- NOTE | 2017-09-14 12:11 | NUR ---
NOTIFIED OF BX RESULTS, IN TO DISCUSS RESULTS WITH PT. AWARE WELL
--- NOTE | 2017-09-14 12:30 | NUR ---
Discharge instructions reviewed with patient/family. Patient receptive and verbalizes understanding. Follow-up care arranged. Written instructions given to patient/family. PARMINDER CHAN
[2017-09-14 15:10] LABS: LEGIONELLA URINARY ANTIGEN Negative (Negative)
== END 2017-09-14 12:30 | disposition home or self-care (01) | DRG 871 ==
LOC: ED 17:23 → EDHOLD 18:33 → 5E 18:33
PROVIDERS: Hospitalist; Internal Medicine; Nurse Practitioner Family; ADMIT Internal Medicine
PROC: 0B9G3ZX Drainage of Left Upper Lung Lobe, Percutaneous Approach, Diagnostic (ICD-10-PCS; principal; 2017-09-13)
DX: A41.9 Sepsis, unspecified organism (principal); J18.9 Pneumonia, unspecified organism; J96.21 Acute and chronic respiratory failure with hypoxia; C34.12 Malignant neoplasm of upper lobe, left bronchus or lung; E44.1 Mild protein-calorie malnutrition; J44.0 Chronic obstructive pulmonary disease with (acute) lower respiratory infection; D47.3 Essential (hemorrhagic) thrombocythemia; J96.22 Acute and chronic respiratory failure with hypercapnia; L03.116 Cellulitis of left lower limb; J44.1 Chronic obstructive pulmonary disease with (acute) exacerbation; E83.41 Hypermagnesemia; R65.20 Severe sepsis without septic shock; R31.9 Hematuria, unspecified; D53.9 Nutritional anemia, unspecified; Z16.29 Resistance to other single specified antibiotic; M19.90 Unspecified osteoarthritis, unspecified site; F17.210 Nicotine dependence, cigarettes, uncomplicated; B96.5 Pseudomonas (aeruginosa) (mallei) (pseudomallei) as the cause of diseases classified elsewhere; F41.1 Generalized anxiety disorder; I25.10 Atherosclerotic heart disease of native coronary artery without angina pectoris; J20.8 Acute bronchitis due to other specified organisms; G89.29 Other chronic pain; I25.2 Old myocardial infarction; Z79.51 Long term (current) use of inhaled steroids; Z68.27 Body mass index [BMI] 27.0-27.9, adult; Z82.49 Family history of ischemic heart disease and other diseases of the circulatory system; Z82.5 Family history of asthma and other chronic lower respiratory diseases; Z80.3 Family history of malignant neoplasm of breast; Z83.3 Family history of diabetes mellitus; Z71.6 Tobacco abuse counseling; Z79.82 Long term (current) use of aspirin; Z79.899 Other long term (current) drug therapy; Z79.1 Long term (current) use of non-steroidal anti-inflammatories (NSAID)

== ENCOUNTER → 2017-10-20 | Day surgery (SDC) | payer MEDICARE ==
[2017-10-19 12:10] LABS: BILIRUBIN NEGATIVE (NEGATIVE); BLOOD NEGATIVE (NEGATIVE); CLARITY CLEAR (CLEAR); COLOR YELLOW (YELLOW); GLUCOSE NEGATIVE (NEGATIVE); KETONE NEGATIVE (NEGATIVE); LEUKO ESTERASE NEGATIVE (NEGATIVE); NITRITE NEGATIVE (NEGATIVE); SPECIFIC GRAVITY 1.015 (1.005-1.030); UROBILINOGEN 0.2 E.U./dl (0.2-1.0)
[2017-10-19 12:15] LABS: HEMATOCRIT 31.7 % (42.0-52.0); MEAN CELL VOLUME 96.1 fl (80.0-94.0); MEAN CORPUSCULAR HGB 30.3 pg (27.0-31.0); MEAN CORPUSCULAR HGB CONC 31.5 g/dl (33.0-37.0); MEAN PLATELET VOLUME 8.2 fl (9.6-12.3); RED CELL DISTRI WIDTH 14.9 % (0-14.5); WHITE BLOOD COUNT 4.9 10*3/uL (4.8-10.8)
[2017-10-19 12:24] LABS: BACTERIA TRACE; EPITHELIAL CELLS 0-2; WBC 0-2 wbc/hpf (0-5)
[2017-10-19 12:30] LABS: ACT PARTIAL THROMBO TIME 27.5 SECONDS (20.8-31.5)
[2017-10-19 12:45] LABS: BUN 12 mg/dl (7-24); CHLORIDE 103 mmol/L (98-107); CREATININE 0.59 mg/dL (0.70-1.30); POTASSIUM 3.6 mmol/L (3.5-5.1); SODIUM 141 mmol/L (136-145)
[2017-10-19 13:03] LABS: ATYPICAL LYMPHS 1 % (0-0); TOTAL CELLS COUNTED 100 #CELLS
[2017-10-19 13:04] LABS: PLATELET SUFFICIENCY HIGH (NORMAL); POLYCHROMASIA SLIGHT
[2017-10-19 13:06] LABS: PLATELET COUNT AUTOMATED 1463 10*3/uL (130-400)
[~2017-10-20] VITALS: Ht 170.1 cm; Wt 84.8 kg
[~2017-10-20] MED LIST changes: +ANORO ELLIPTA1 EACH IA; +BREO ELLIPTA 11 EACH INH; +Ipratropium Brom3 ML INH; +LASIX20 MG PO; +Motrin,Rufen800 MG PO; +POTASSIUM CHLO10 MEQ PO; +VITAMIN D-32000 UNI1 PO
--- NOTE | ~2017-10-20 | PROC NOTE ---
[place], [place] PROCEDURE NOTE NAME: SCOTT HUYNH [facility] #: [id number] UNIT #: [id number] ROOM: DOCTOR: JESSICA DUGAN MD BIRTHDATE: [birth year] DOS: 10/20/2017 PREOPERATIVE DIAGNOSIS: Left lung cancer. POSTOPERATIVE DIAGNOSIS: Left lung cancer. PROCEDURE: Right subclavian MediPort placement. SURGEON: Jessica Dugan MD WIND TURBINE INSTALLER: TAYLOR. ANESTHESIA: MAC. INDICATIONS: This is a 67-year-old gentleman with a history of left lung cancer, who is on therapy and is requiring MediPort placement for the treatment. He is here for placement of a right-sided MediPort. The procedure and its complications were explained to the patient in detail preoperatively. Complications that were discussed included but were not limited to, bleeding, hemothorax, pneumothorax, infection and prolonged pain. He agreed to proceed. DESCRIPTION OF PROCEDURE: After identifying the patient, the patient was brought to the operating suite and laid in the supine position. After IV sedation was administered, the parts were painted and draped in the usual sterile fashion and a timeout procedure was called. With the help of an ultrasound probe, the right-sided internal jugular vein was excised, but could not be threaded with the wire, therefore the decision was made to move to the right-sided subclavian vein access. This was achieved percutaneously and a guidewire was passed, which was confirmed to be in good position on fluoroscopy. Thereafter, a pocket was created approximate 2-3 finger below the right clavicle by injecting local anesthesia and creating a pocket for the MediPort. After adequate port was created, the catheter was placed over introducer and placed through this incision into the access site in the right chest where the wire was placed. Thereafter, the sheath and the dilator were passed over the wire and the catheter was then placed into the sheath after the wire was removed. After the sheath was removed, the catheter was confirmed to be in good placement with the help of fluoroscopy. The catheter was then cut to size and the port was then affixed to the end and heparin was injected and was found to have good flow and also the blood return was adequate. Thereafter, this port was then fixed to the underlying fascia with the help of 3-0 Prolene. The subcutaneous tissue was approximated with the help of 3-0 Vicryl in a running fashion and the skin edges were approximated with the help of 4-0 Vicryl in a subcuticular running fashion. The port was again accessed after the skin was closed and was found to have good flow and also good return of blood. A dressing was placed. The patient tolerated the procedure well and was taken to the recovery room in a stable fashion where a chest x-ray was ordered. This chest x-ray read as normal. The patient tolerated the procedure well. There were no complications. Dr. Jessica Dugan, the attending surgeon, was present throughout the operating case. [place], [place] PROCEDURE NOTE NAME: SCOTT HUYNH UNIT #: [id number] ROOM: DOCTOR: JESSICA DUGAN MD BIRTHDATE: [birth year] Jessica Dugan MD CM:PROCNOTE:PROCEDURE NOTE [id number] JESSICA DUGAN MD
[2017-10-20 06:55] VITALS: BP 140/68
[2017-10-20 08:49] VITALS: BP 108/54
[2017-10-20 09:04] VITALS: BP 114/49
[2017-10-20 09:21] VITALS: BP 127/58
== END | disposition home or self-care (01) ==
LOC: SDC 10-18 10:15
PROVIDERS: Surgery
DX: C34.92 Malignant neoplasm of unspecified part of left bronchus or lung (principal); I25.2 Old myocardial infarction; J43.9 Emphysema, unspecified; Z87.891 Personal history of nicotine dependence; Z98.890 Other specified postprocedural states; Z88.8 Allergy status to other drugs, medicaments and biological substances; Z79.899 Other long term (current) drug therapy; E11.22 Type 2 diabetes mellitus with diabetic chronic kidney disease; I12.9 Hypertensive chronic kidney disease with stage 1 through stage 4 chronic kidney disease, or unspecified chronic kidney disease; N18.9 Chronic kidney disease, unspecified; E78.00 Pure hypercholesterolemia, unspecified; Z86.73 Personal history of transient ischemic attack (TIA), and cerebral infarction without residual deficits; Z83.3 Family history of diabetes mellitus; Z82.49 Family history of ischemic heart disease and other diseases of the circulatory system

== ENCOUNTER → 2017-11-24 | Outpatient (CLI) | payer MEDICARE ==
[2017-11-24 15:27] LABS: BASO % 0.3 % (0.0-1.0); EOS % 0.2 % (1.0-4.0); HEMATOCRIT 29.9 % (42.0-52.0); HEMOGLOBIN 9.4 g/dl (14.0-18.0); LYMPH # 1.6 10*3/uL (1.3-4.4); LYMPH % 14.3 % (27.0-41.0); MEAN CELL VOLUME 97.4 fl (80.0-94.0); MEAN CORPUSCULAR HGB 30.6 pg (27.0-31.0); MEAN CORPUSCULAR HGB CONC 31.4 g/dl (33.0-37.0); MEAN PLATELET VOLUME 8.6 fl (9.6-12.3); MONO # 0.7 10*3/uL (0.1-1.0); MONO % 5.9 % (3.0-9.0); NEUT # 8.8 10*3/uL (2.3-7.9); NEUT % 78.9 % (47.0-73.0); PLATELET COUNT AUTOMATED 614 10*3/uL (130-400); RED BLOOD COUNT 3.07 10*6/uL (4.50-5.90); RED CELL DISTRI WIDTH 17.1 % (0-14.5); WHITE BLOOD COUNT 11.1 10*3/uL (4.8-10.8)
[2017-11-24 15:42] LABS: ALBUMIN 3.3 gm/dl (3.1-4.5); BUN 14 mg/dl (7-24); CHLORIDE 103 mmol/L (98-107); CREATININE 0.63 mg/dL (0.70-1.30); POTASSIUM 3.8 mmol/L (3.5-5.1); SGOT/AST 30 IU/L (3-35); SGPT/ALT 30 U/L (12-78); SODIUM 142 mmol/L (136-145); TOTAL PROTEIN 6.9 gm/dL (6.4-8.2)
[2017-11-24 15:43] LABS: ALKALINE PHOSPHATASE 81 U/L (45-117)
== END | disposition home or self-care (01) ==
LOC: LAB 14:35
PROVIDERS: Internal Medicine Hematology & Oncology
DX: C34.12 Malignant neoplasm of upper lobe, left bronchus or lung (principal)

== ENCOUNTER → 2017-12-11 | Outpatient (CLI) | payer MEDICARE ==
[2017-12-11 13:06] LABS: BASO % 0.4 % (0.0-1.0); EOS # 0.1 10*3/uL (0.0-0.4); EOS % 2.3 % (1.0-4.0); HEMATOCRIT 31.9 % (42.0-52.0); HEMOGLOBIN 10.1 g/dl (14.0-18.0); LYMPH # 1.9 10*3/uL (1.3-4.4); LYMPH % 33.5 % (27.0-41.0); MEAN CELL VOLUME 98.5 fl (80.0-94.0); MEAN CORPUSCULAR HGB 31.2 pg (27.0-31.0); MEAN CORPUSCULAR HGB CONC 31.7 g/dl (33.0-37.0); MEAN PLATELET VOLUME 9.1 fl (9.6-12.3); MONO # 0.6 10*3/uL (0.1-1.0); MONO % 9.8 % (3.0-9.0); NEUT % 53.5 % (47.0-73.0); PLATELET COUNT AUTOMATED 177 10*3/uL (130-400); RED BLOOD COUNT 3.24 10*6/uL (4.50-5.90); RED CELL DISTRI WIDTH 18.1 % (0-14.5); WHITE BLOOD COUNT 5.6 10*3/uL (4.8-10.8)
[2017-12-11 13:34] LABS: ALBUMIN 3.6 gm/dl (3.1-4.5); ALKALINE PHOSPHATASE 103 U/L (45-117); BUN 12 mg/dl (7-24); CHLORIDE 101 mmol/L (98-107); CREATININE 0.61 mg/dL (0.70-1.30); POTASSIUM 3.8 mmol/L (3.5-5.1); SGOT/AST 28 IU/L (3-35); SGPT/ALT 41 U/L (12-78); SODIUM 140 mmol/L (136-145); TOTAL PROTEIN 7.4 gm/dL (6.4-8.2)
== END | disposition home or self-care (01) ==
LOC: LAB 12:43
PROVIDERS: Internal Medicine Hematology & Oncology
DX: C34.12 Malignant neoplasm of upper lobe, left bronchus or lung (principal)

== ENCOUNTER 2017-12-20 09:37 | Emergency (ER) | payer MEDICARE ==
[~2017-12-20] VITALS: Wt 92.5 kg
[2017-12-20 09:41] VITALS: BP 134/82
== END 2017-12-20 10:28 | disposition home or self-care (01) ==
LOC: ED 09:37
DX: I11.0 Hypertensive heart disease with heart failure (principal); J44.1 Chronic obstructive pulmonary disease with (acute) exacerbation; I50.30 Unspecified diastolic (congestive) heart failure; F41.9 Anxiety disorder, unspecified; I25.10 Atherosclerotic heart disease of native coronary artery without angina pectoris; J96.12 Chronic respiratory failure with hypercapnia; G89.29 Other chronic pain

== ENCOUNTER → 2018-01-07 | Outpatient (CLI) | payer MEDICARE ==
[2018-01-07 14:22] LABS: BASO % 0.5 % (0.0-1.0); EOS # 0.2 10*3/uL (0.0-0.4); EOS % 3.6 % (1.0-4.0); HEMATOCRIT 33.9 % (42.0-52.0); HEMOGLOBIN 10.6 g/dl (14.0-18.0); LYMPH # 1.4 10*3/uL (1.3-4.4); LYMPH % 24.8 % (27.0-41.0); MEAN CELL VOLUME 101.2 fl (80.0-94.0); MEAN CORPUSCULAR HGB 31.6 pg (27.0-31.0); MEAN CORPUSCULAR HGB CONC 31.3 g/dl (33.0-37.0); MEAN PLATELET VOLUME 10.1 fl (9.6-12.3); MONO # 0.9 10*3/uL (0.1-1.0); MONO % 15.4 % (3.0-9.0); NEUT # 3.1 10*3/uL (2.3-7.9); NEUT % 55.3 % (47.0-73.0); PLATELET COUNT AUTOMATED 198 10*3/uL (130-400); RED BLOOD COUNT 3.35 10*6/uL (4.50-5.90); RED CELL DISTRI WIDTH 17.4 % (0-14.5); WHITE BLOOD COUNT 5.6 10*3/uL (4.8-10.8)
[2018-01-07 14:46] LABS: ALBUMIN 3.6 gm/dl (3.1-4.5); ALKALINE PHOSPHATASE 92 U/L (45-117); BUN 11 mg/dl (7-24); CHLORIDE 101 mmol/L (98-107); CREATININE 0.57 mg/dL (0.70-1.30); POTASSIUM 4.3 mmol/L (3.5-5.1); SGOT/AST 35 IU/L (3-35); SGPT/ALT 38 U/L (12-78); SODIUM 140 mmol/L (136-145); TOTAL PROTEIN 7.2 gm/dL (6.4-8.2)
== END | disposition home or self-care (01) ==
LOC: LAB 13:44
PROVIDERS: Internal Medicine Hematology & Oncology
DX: C34.12 Malignant neoplasm of upper lobe, left bronchus or lung (principal)

== ENCOUNTER → 2018-02-03 | Outpatient (CLI) | payer MEDICARE ==
[2018-02-03 12:46] LABS: HEMATOCRIT 25.1 % (42.0-52.0); HEMOGLOBIN 7.9 g/dl (14.0-18.0); MEAN CELL VOLUME 100.4 fl (80.0-94.0); MEAN CORPUSCULAR HGB 31.6 pg (27.0-31.0); MEAN CORPUSCULAR HGB CONC 31.5 g/dl (33.0-37.0); MEAN PLATELET VOLUME 10.5 fl (9.6-12.3); PLATELET COUNT AUTOMATED 78 10*3/uL (130-400); RED CELL DISTRI WIDTH 15.4 % (0-14.5); WHITE BLOOD COUNT 2.1 10*3/uL (4.8-10.8)
[2018-02-03 13:07] LABS: ALBUMIN 3.1 gm/dl (3.1-4.5); ALKALINE PHOSPHATASE 76 U/L (45-117); BUN 7 mg/dl (7-24); CHLORIDE 102 mmol/L (98-107); CREATININE 0.68 mg/dL (0.70-1.30); POTASSIUM 3.7 mmol/L (3.5-5.1); SGOT/AST 37 IU/L (3-35); SGPT/ALT 47 U/L (12-78); SODIUM 142 mmol/L (136-145); TOTAL PROTEIN 6.6 gm/dL (6.4-8.2)
[2018-02-03 13:16] LABS: TOTAL CELLS COUNTED 100 #CELLS
[2018-02-03 13:17] LABS: PLATELET SUFFICIENCY LOW (NORMAL); POLYCHROMASIA SLIGHT
== END | disposition home or self-care (01) ==
LOC: LAB 11:57
PROVIDERS: Internal Medicine Hematology & Oncology
DX: C34.12 Malignant neoplasm of upper lobe, left bronchus or lung (principal)

== ENCOUNTER → 2018-02-12 | Outpatient (CLI) | payer MEDICARE ==
[2018-02-12 13:58] LABS: HEMATOCRIT 33.7 % (42.0-52.0); HEMOGLOBIN 10.5 g/dl (14.0-18.0); MEAN CELL VOLUME 96.8 fl (80.0-94.0); MEAN CORPUSCULAR HGB 30.2 pg (27.0-31.0); MEAN CORPUSCULAR HGB CONC 31.2 g/dl (33.0-37.0); MEAN PLATELET VOLUME 8.8 fl (9.6-12.3); PLATELET COUNT AUTOMATED 483 10*3/uL (130-400); RED BLOOD COUNT 3.48 10*6/uL (4.50-5.90); RED CELL DISTRI WIDTH 15.5 % (0-14.5)
[2018-02-12 14:24] LABS: ALBUMIN 3.2 gm/dl (3.1-4.5); BUN 12 mg/dl (7-24); CHLORIDE 99 mmol/L (98-107); POTASSIUM 3.5 mmol/L (3.5-5.1); SODIUM 139 mmol/L (136-145)
[2018-02-12 14:28] LABS: ALKALINE PHOSPHATASE 73 U/L (45-117); CREATININE 0.52 mg/dL (0.70-1.30); SGOT/AST 53 IU/L (3-35); SGPT/ALT 74 U/L (12-78)
[2018-02-12 14:36] LABS: TOTAL CELLS COUNTED 100 #CELLS
[2018-02-12 14:37] LABS: PLATELET SUFFICIENCY NORMAL (NORMAL)
[2018-02-12 15:36] LABS: WHITE BLOOD COUNT 1.7 10*3/uL (4.8-10.8)
== END | disposition home or self-care (01) ==
LOC: LAB 13:08
PROVIDERS: Internal Medicine Hematology & Oncology
DX: C34.12 Malignant neoplasm of upper lobe, left bronchus or lung (principal)

== ENCOUNTER → 2018-02-14 | Outpatient (CLI) | payer MEDICARE ==
[2018-02-14 09:35] VITALS: BP 124/86
== END | disposition home or self-care (01) ==
LOC: INJECTION 09:30
DX: C34.12 Malignant neoplasm of upper lobe, left bronchus or lung (principal)

== ENCOUNTER → 2018-03-19 | Outpatient (CLI) | payer MEDICARE ==
[2018-03-19 15:12] LABS: BASO % 0.7 % (0.0-1.0); EOS # 0.4 10*3/uL (0.0-0.4); EOS % 6.2 % (1.0-4.0); HEMATOCRIT 36.7 % (42.0-52.0); HEMOGLOBIN 10.9 g/dl (14.0-18.0); LYMPH # 1.5 10*3/uL (1.3-4.4); LYMPH % 26.2 % (27.0-41.0); MEAN CELL VOLUME 100.5 fl (80.0-94.0); MEAN CORPUSCULAR HGB 29.9 pg (27.0-31.0); MEAN CORPUSCULAR HGB CONC 29.7 g/dl (33.0-37.0); MEAN PLATELET VOLUME 8.4 fl (9.6-12.3); MONO # 0.6 10*3/uL (0.1-1.0); MONO % 10.9 % (3.0-9.0); NEUT # 3.2 10*3/uL (2.3-7.9); NEUT % 55.8 % (47.0-73.0); PLATELET COUNT AUTOMATED 333 10*3/uL (130-400); RED BLOOD COUNT 3.65 10*6/uL (4.50-5.90); RED CELL DISTRI WIDTH 18.5 % (0-14.5); WHITE BLOOD COUNT 5.7 10*3/uL (4.8-10.8)
== END | disposition home or self-care (01) ==
LOC: LAB 14:37
PROVIDERS: Internal Medicine Hematology & Oncology
DX: C34.12 Malignant neoplasm of upper lobe, left bronchus or lung (principal)

== ENCOUNTER → 2018-04-10 | Outpatient (CLI) | payer MEDICARE ==
[2018-04-10 10:40] LABS: BASO % 0.5 % (0.0-1.0); EOS # 0.3 10*3/uL (0.0-0.4); EOS % 3.7 % (1.0-4.0); HEMATOCRIT 35.7 % (42.0-52.0); LYMPH # 1.7 10*3/uL (1.3-4.4); LYMPH % 21.6 % (27.0-41.0); MEAN CELL VOLUME 99.7 fl (80.0-94.0); MEAN CORPUSCULAR HGB 30.7 pg (27.0-31.0); MEAN CORPUSCULAR HGB CONC 30.8 g/dl (33.0-37.0); MEAN PLATELET VOLUME 8.8 fl (9.6-12.3); MONO # 0.5 10*3/uL (0.1-1.0); MONO % 6.6 % (3.0-9.0); NEUT # 5.3 10*3/uL (2.3-7.9); NEUT % 67.2 % (47.0-73.0); PLATELET COUNT AUTOMATED 404 10*3/uL (130-400); RED BLOOD COUNT 3.58 10*6/uL (4.50-5.90); RED CELL DISTRI WIDTH 16.8 % (0-14.5); WHITE BLOOD COUNT 7.8 10*3/uL (4.8-10.8)
[2018-04-10 11:03] LABS: ALBUMIN 3.3 gm/dl (3.1-4.5); ALKALINE PHOSPHATASE 99 U/L (45-117); BUN 11 mg/dl (7-24); CHLORIDE 103 mmol/L (98-107); CREATININE 0.75 mg/dL (0.70-1.30); POTASSIUM 3.7 mmol/L (3.5-5.1); SGOT/AST 21 IU/L (3-35); SGPT/ALT 24 U/L (12-78); SODIUM 142 mmol/L (136-145); TOTAL PROTEIN 7.1 gm/dL (6.4-8.2)
== END | disposition home or self-care (01) ==
LOC: LAB 09:42
PROVIDERS: Internal Medicine Hematology & Oncology
DX: C34.12 Malignant neoplasm of upper lobe, left bronchus or lung (principal)

== ENCOUNTER → 2018-05-07 | Outpatient (CLI) | payer MEDICARE ==
[2018-05-07 12:22] LABS: BASO % 0.5 % (0.0-1.0); EOS # 0.3 10*3/uL (0.0-0.4); EOS % 3.2 % (1.0-4.0); HEMATOCRIT 38.3 % (42.0-52.0); HEMOGLOBIN 11.8 g/dl (14.0-18.0); LYMPH # 1.5 10*3/uL (1.3-4.4); LYMPH % 17.4 % (27.0-41.0); MEAN CELL VOLUME 99.5 fl (80.0-94.0); MEAN CORPUSCULAR HGB 30.6 pg (27.0-31.0); MEAN CORPUSCULAR HGB CONC 30.8 g/dl (33.0-37.0); MEAN PLATELET VOLUME 8.1 fl (9.6-12.3); MONO # 0.7 10*3/uL (0.1-1.0); NEUT % 70.5 % (47.0-73.0); PLATELET COUNT AUTOMATED 327 10*3/uL (130-400); RED BLOOD COUNT 3.85 10*6/uL (4.50-5.90); RED CELL DISTRI WIDTH 15.2 % (0-14.5); WHITE BLOOD COUNT 8.5 10*3/uL (4.8-10.8)
[2018-05-07 12:48] LABS: ALBUMIN 3.5 gm/dl (3.1-4.5); ALKALINE PHOSPHATASE 99 U/L (45-117); BUN 14 mg/dl (7-24); CHLORIDE 102 mmol/L (98-107); CREATININE 0.62 mg/dL (0.70-1.30); POTASSIUM 3.9 mmol/L (3.5-5.1); SGOT/AST 22 IU/L (3-35); SGPT/ALT 26 U/L (12-78); SODIUM 141 mmol/L (136-145); TOTAL PROTEIN 7.2 gm/dL (6.4-8.2)
== END | disposition home or self-care (01) ==
LOC: LAB 11:57
PROVIDERS: Internal Medicine Hematology & Oncology
DX: C34.12 Malignant neoplasm of upper lobe, left bronchus or lung (principal)

== ENCOUNTER 2018-11-16 13:08 | Inpatient (IN) | payer MEDICARE ==
[~2018-11-16] VITALS: Ht 175.3 cm; Wt 85.8 kg
[2018-11-16 13:13] VITALS: BP 160/68
[2018-11-16 13:37] LABS: BASO # 0.1 10*3/uL (0.0-0.1); BASO % 0.6 % (0.0-1.0); EOS # 0.3 10*3/uL (0.0-0.4); EOS % 3.3 % (1.0-4.0); HEMATOCRIT 37.3 % (42.0-52.0); HEMOGLOBIN 11.4 g/dl (14.0-18.0); LYMPH # 1.3 10*3/uL (1.3-4.4); LYMPH % 15.5 % (27.0-41.0); MEAN CELL VOLUME 101.6 fl (80.0-94.0); MEAN CORPUSCULAR HGB 31.1 pg (27.0-31.0); MEAN CORPUSCULAR HGB CONC 30.6 g/dl (33.0-37.0); MEAN PLATELET VOLUME 8.8 fl (9.6-12.3); MONO # 0.6 10*3/uL (0.1-1.0); NEUT # 6.3 10*3/uL (2.3-7.9); NEUT % 73.1 % (47.0-73.0); PLATELET COUNT AUTOMATED 298 10*3/uL (130-400); RED BLOOD COUNT 3.67 10*6/uL (4.50-5.90); RED CELL DISTRI WIDTH 13.5 % (0-14.5); WHITE BLOOD COUNT 8.6 10*3/uL (4.8-10.8)
[2018-11-16 13:49] LABS: ACT PARTIAL THROMBO TIME 24.6 SECONDS (20.8-31.5)
[2018-11-16 13:53] LABS: ALBUMIN 3.2 gm/dl (3.1-4.5); ALKALINE PHOSPHATASE 62 U/L (45-117); BUN 7 mg/dl (7-24); CHLORIDE 99 mmol/L (98-107); SGOT/AST 15 IU/L (3-35); SGPT/ALT 9 U/L (12-78); SODIUM 145 mmol/L (136-145); TOTAL PROTEIN 6.9 gm/dL (6.4-8.2)
[2018-11-16 13:54] LABS: TROPONIN I < 0.015 ng/ml (<0.045)
[2018-11-16 14:34] VITALS: BP 143/78
--- NOTE | 2018-11-16 15:20 | NUR ---
PT REPORTS RELIEF FROM HIS LEFT RIB PAIN.
[2018-11-16 15:31] VITALS: BP 139/65
--- NOTE | 2018-11-16 16:03 | NUR ---
PT REFUSED PORT TO BE ACCESSED. STATES "I DON'T WANT IT ACCESSED IF IT DOESN'T HAVE TO BE.... THEY TELL ME THAT IT COULD CAUSE INFECTION" DR. YANG AWARE THAT PATIENT REFUSES TO HAVE PORT ACCESSED. STATES IT IS OKAY AT THIS TIME AND HE CAN BE TRANSPORTED TO HIS INPATIENT ROOM. AT THIS TIME PATIENT HAS NO IV ACCESS.
[2018-11-16] MEDS ORDERED: INCRUSE ELLI62.5 MCG INH (16:15)
[2018-11-16] MEDS ORDERED: HYDROCODONE-AC1 EAC2 PO (16:17)
[2018-11-16] MEDS ORDERED: FUROSEMIDE20 M1 PO (16:18)
[2018-11-16] MEDS ORDERED: POTASSIUM CHLO10 ME4 PO (16:19)
[2018-11-16 16:30] VITALS: BP 136/83
--- NOTE | 2018-11-16 16:30 | NUR ---
A 68, admitted to , under the services of BERTIN Phelan DO with a diagnosis of LUNG CANCER ,, fall with fracture. Chief complaint is left sided rib pain after near fall. Patient arrived via stretcher from ER. Monitor applied. Initial assessment completed. Vital signs taken and recorded. BERTIN PHELAN DO notified of admission to the unit. Orders received. See assessment for past medical history, medications and allergies. Patient and/or family oriented to unit. [facility] visitation policy reviewed. Clothing/patient valuable form completed. CRISELDA COCHRAN
[2018-11-16] MEDS ORDERED: ASPIR LOW81 MG PO (16:46)
--- NOTE | 2018-11-16 18:26 | NUR ---
ANSWERING SERVICE NOTIFIED REGARDING PALLIATIVE CARE CONSULT.
--- NOTE | 2018-11-16 19:36 | NUR ---
PRN NORCO GIVEN FOR PT COMPLAINTS OF PAIN IN THE RIBS. 06/02. CALL BOBBY EDDY, WILL MONITOR
[2018-11-16 20:00] VITALS: BP 151/79
--- NOTE | 2018-11-16 21:30 | NUR ---
PRN MEDICATION APPEARS EFFECTIVE, PT SLEEPING
[2018-11-17] VITALS: BP 139/57
[2018-11-17 06:27] LABS: BASO # 0.1 10*3/uL (0.0-0.1); BASO % 0.6 % (0.0-1.0); EOS # 0.4 10*3/uL (0.0-0.4); EOS % 4.5 % (1.0-4.0); HEMATOCRIT 35.9 % (42.0-52.0); HEMOGLOBIN 10.8 g/dl (14.0-18.0); LYMPH # 1.4 10*3/uL (1.3-4.4); LYMPH % 16.6 % (27.0-41.0); MEAN CELL VOLUME 102.3 fl (80.0-94.0); MEAN CORPUSCULAR HGB 30.8 pg (27.0-31.0); MEAN CORPUSCULAR HGB CONC 30.1 g/dl (33.0-37.0); MEAN PLATELET VOLUME 9.2 fl (9.6-12.3); MONO # 0.8 10*3/uL (0.1-1.0); MONO % 9.2 % (3.0-9.0); NEUT # 5.9 10*3/uL (2.3-7.9); NEUT % 68.8 % (47.0-73.0); PLATELET COUNT AUTOMATED 299 10*3/uL (130-400); RED BLOOD COUNT 3.51 10*6/uL (4.50-5.90); RED CELL DISTRI WIDTH 13.6 % (0-14.5); WHITE BLOOD COUNT 8.6 10*3/uL (4.8-10.8)
[2018-11-17 07:14] LABS: ALBUMIN 2.9 gm/dl (3.1-4.5); ALKALINE PHOSPHATASE 54 U/L (45-117); BUN 12 mg/dl (7-24); CHLORIDE 100 mmol/L (98-107); CHOLESTEROL 164 mg/dL (<200); PHOSPHOROUS 2.7 mg/dL (2.5-4.9); POTASSIUM 3.6 mmol/L (3.5-5.1); SGOT/AST 15 IU/L (3-35); SGPT/ALT 12 U/L (12-78); SODIUM 146 mmol/L (136-145); TOTAL PROTEIN 6.4 gm/dL (6.4-8.2); TRIGLYCERIDES 108 mg/dl (<150); VLDL CHOLESTEROL 22 mg/dL (6-40)
[2018-11-17 07:20] LABS: FREE T4 1.04 ng/dl (0.76-1.46); HDL CHOLESTEROL 46 mg/dl (40-60); LDL CHOLESTEROL 96 mg/dL (9-159); VITAMIN D, 25-HYDROXY 11.1 ng/mL (30-100)
[2018-11-17 07:50] VITALS: BP 144/49
--- NOTE | 2018-11-17 07:55 | NUR ---
Requested and medicated with [place] at 0056 for complaints of chest and back pain rated a 9/10 with minimal relief later voiced, allowing to rest quietly until 0530. Requeted and medicated with [place] at 0530 for complaints of chest and back pain, states partly related to chemo. [facility]bank effective resting quietly in bed with eyes closed. Will continue to monitor.
--- NOTE | 2018-11-17 08:30 | NUR ---
RESTING IN BED WITH EYES CLOSED. RESP-EASY AND REGULAR. OXYGEN IN USE. PT STATES PAIN MEDICATION HELPED WITH PAIN, NO C/O AT THIS TIME. CALL LIGHT IN REACH. SEE SHIFT ASSESSMENT.
--- NOTE | 2018-11-17 09:00 | NUR ---
Head Paper Tester in to talk to patient. Patient states lives at home alone with his family checking in on him. There are 0 steps in the home. Physician: no family physician Pharmacy: [facility] in [place] Home health services: [facility] non skilled aide MWF for 3 hours Patient's level of ADLs: MINIMAL ASSIST Patient has working utilities: yes DME: cane, wheeled walker, O2 @ 3L nc, portable O2 tanks, nebulizer, O2 supplier Samantha, would like to see if it is possible to get an electric chair lift. Discussed that an electric lift mechanism is not covered because it is considered a convenience feature, and patient verbalized an understanding. Follow-up physician's appointment after d/c: will be made by the hospitalist nurse director upon discharge Does patient want to access PORTAL?: no Discharge plan discussed with patient and family who is at the bedside. He lives home alone with family checking in on him. He needs minimal assistance with his ADLs and ambulates with a cane or wheeled walker. Discussed home health care services and he currently has an [facility] non skilled aide and he would like to resume those services with a different aide but the same company. Spoke to Arslan at [facility]. When medically he will be discharged to home with the resumption of his [facility] non skilled aide. COOPER ECHOLS
--- NOTE | 2018-11-17 10:15 | NUR ---
IV started right hand with #24 angiocath after 1 attempts. The IV site was prepped with Chloraprep. Heparin lock attached. Sterile dressing applied. Patient tolerated precedure well. Procedure performed according to [facility] policy & procedure. PATRICIA KEITH
[2018-11-17 12:00] VITALS: BP 142/75
--- NOTE | 2018-11-17 13:30 | NUR ---
SITTING UP AT SIDE OF BED WITH VISITORS AT HIS SIDE. OXYGEN IN USE. NO C/O AT THIS TIME. CALL LIGHT IN REACH.
--- NOTE | 2018-11-17 13:59 | NUR ---
PT C/O LEFT SIDE/RIB PAIN RATES PAIN 5 ON PAIN SCALE 0-10. MEDICATED WITH NORCO PO PER PRN ORDER, SEE EMAR. CALL LIGHT IN REACH. VISITORS AT HIS SIDE.
--- NOTE | 2018-11-17 14:35 | NUR ---
Faxed palliative care consult to [facility]
--- NOTE | 2018-11-17 15:26 | NUR ---
Occupational Therapy evaluation offered this date. Patient supine in bed with O2 in place. Patient reports that he has too much pain to participate in the evaluation today. OTR to recheck at a later date. Galina Alexander OTR/Shae
--- NOTE | 2018-11-17 15:26 | NUR ---
ASSUMED CARE OF PATIENT AT THIS TIME. PATIENT RESTING COMFORTABLY IN HIS BED AT THIS TIME. NO S/S OF DISTRESS. CALL LIGHT WITHIN REACH.
[2018-11-17 16:00] VITALS: BP 136/84
[2018-11-17 20:00] VITALS: BP 123/55
--- NOTE | 2018-11-17 20:00 | NUR ---
MEDICATED WITH NORCO FOR C/O LEFT SIDED PAIN RATED AN 8/10.
--- NOTE | 2018-11-17 22:30 | NUR ---
PATIENT STATES KULDIP HELPED.
[2018-11-18] VITALS: BP 142/62
[2018-11-18 07:10] LABS: HEMATOCRIT 36.1 % (42.0-52.0); HEMOGLOBIN 10.9 g/dl (14.0-18.0); MEAN CELL VOLUME 100.8 fl (80.0-94.0); MEAN CORPUSCULAR HGB 30.4 pg (27.0-31.0); MEAN CORPUSCULAR HGB CONC 30.2 g/dl (33.0-37.0); MEAN PLATELET VOLUME 9.2 fl (9.6-12.3); PLATELET COUNT AUTOMATED 309 10*3/uL (130-400); RED BLOOD COUNT 3.58 10*6/uL (4.50-5.90); RED CELL DISTRI WIDTH 13.2 % (0-14.5); WHITE BLOOD COUNT 12.3 10*3/uL (4.8-10.8)
[2018-11-18 07:30] LABS: CHLORIDE 98 mmol/L (98-107); SGOT/AST 12 IU/L (3-35); SGPT/ALT 9 U/L (12-78); SODIUM 142 mmol/L (136-145); TOTAL PROTEIN 6.9 gm/dL (6.4-8.2)
[2018-11-18 07:34] LABS: PLATELET SUFFICIENCY NORMAL (NORMAL); TOTAL CELLS COUNTED 100 #CELLS
[2018-11-18 07:35] LABS: ALKALINE PHOSPHATASE 58 U/L (45-117); BUN 18 mg/dl (7-24); CREATININE 0.52 mg/dL (0.70-1.30); POLYCHROMASIA SLIGHT
--- NOTE | 2018-11-18 08:03 | NUR ---
PATIENT RECEIVED NORCO FOR PAIN RATED 7/10.
--- NOTE | 2018-11-18 09:00 | NUR ---
PHYSICAL THERAPY PT EVAL COMPLETED TODAY: FULL EVALUATION TO FOLLOW: RECOMMEND PT WHILE HERE TO ADDRESS DECREASED STRENGTH AND ENDURANCE IWTH AMBULATION. PT EVAL IS MODERATE COMPLEXITY BASED ON CHART REVIEW, TEST RESULTS AND EVALAUTION: [id number]. D/C REC ARE TO RETURN TO HOME WITH HOME PT SERVICES. ADAMENT HE IS LEAVING HOSPITAL TOMORROW HE HAS APPOINTMENT AT PAIN CLINIC AND CANNOT MISS IT. THANK YOU FOR REFERRAL [facility]
[2018-11-18 12:00] VITALS: BP 139/68
--- NOTE | 2018-11-18 15:20 | NUR ---
PATIENT RECEIVED NORCO FOR RIB PAIN RATED 7/10.
[2018-11-18 16:00] VITALS: BP 123/68
--- NOTE | 2018-11-18 17:53 | NUR ---
PATIENT RECEIVED MORPHINE FOR BREAKTHROUGH PAIN IN THE LEFT RIB. RATES IT 04/02.
[2018-11-18 20:00] VITALS: BP 154/69
--- NOTE | 2018-11-18 23:30 | NUR ---
NEW IV INITIATED IN LEFT FOREARM UNDER ASEPTIC TECHNIQUE. OLD IV SITE IN RIGHT HAND WAS LEAKING. SITE DISCONTINUED. MINIMAL BLEEDING
--- NOTE | 2018-11-18 23:33 | NUR ---
PATIENT MEDICATED WITH MORPHINE PER DRS ORDERS FOR COMPLAINTS OF SEVERE BACK/RIB PAIN
[2018-11-19] VITALS: BP 140/60
--- NOTE | 2018-11-19 00:35 | NUR ---
PATIENT STATES EARLIER MEDICATION WAS EFFECTIVE
[2018-11-19 06:28] LABS: HEMATOCRIT 36.4 % (42.0-52.0); MEAN CELL VOLUME 100.3 fl (80.0-94.0); MEAN CORPUSCULAR HGB 30.3 pg (27.0-31.0); MEAN CORPUSCULAR HGB CONC 30.2 g/dl (33.0-37.0); MEAN PLATELET VOLUME 9.4 fl (9.6-12.3); PLATELET COUNT AUTOMATED 338 10*3/uL (130-400); RED BLOOD COUNT 3.63 10*6/uL (4.50-5.90); RED CELL DISTRI WIDTH 13.7 % (0-14.5); WHITE BLOOD COUNT 17.9 10*3/uL (4.8-10.8)
[2018-11-19 06:42] LABS: BUN 19 mg/dl (7-24); CHLORIDE 99 mmol/L (98-107); CREATININE 0.41 mg/dL (0.70-1.30); PHOSPHOROUS 1.9 mg/dL (2.5-4.9); POTASSIUM 3.9 mmol/L (3.5-5.1); SODIUM 143 mmol/L (136-145)
[2018-11-19 06:50] LABS: PLATELET SUFFICIENCY NORMAL (NORMAL); TOTAL CELLS COUNTED 100 #CELLS
[2018-11-19 08:00] VITALS: BP 154/90
--- NOTE | 2018-11-19 09:00 | NUR ---
PT MEDICATED WITH NORCO 1 TAB AT HIS REQUEST FOR GENERALIZED BODY PAIN PER PT.
--- NOTE | 2018-11-19 10:00 | NUR ---
PT STATED THAT NORCO WAS EFFECTIVE IN EASING HIS PAIN.
[2018-11-19 12:00] VITALS: BP 142/69
--- NOTE | 2018-11-19 12:39 | NUR ---
pt medicated with morphine 2mg iv at his request for "pain all over".
[2018-11-19 16:00] VITALS: BP 147/81
--- NOTE | 2018-11-19 16:47 | NUR ---
PT MEDICATED WITH NORCO 1 TAB FOR C/O GENERALIZED BODY PAIN.
--- NOTE | 2018-11-19 19:58 | NUR ---
1935 MEDICATED WITH MS 2MG IV FOR C/O'S L RIB PAIN. RATES PAIN A "7". WILL MONITOR.
[2018-11-19 20:00] VITALS: BP 119/79
--- NOTE | 2018-11-19 20:22 | NUR ---
EARLIER MORPHINE EFFECTIVE. SITTING UP ON THE SIDE OF THE BED EATING HS SNACK. PULSE OX 96% ON 3L. HEP LOCK INTACT. NO DISTRESS NOTED.
--- NOTE | 2018-11-19 22:09 | NUR ---
RESTING IN BED WITH EYES CLOSED. APPEARS TO BE SLEEPING. 02 INTACT.
[2018-11-20] VITALS: BP 145/69
--- NOTE | 2018-11-20 01:30 | NUR ---
PT C/O GENRAL BODY ACHES 07/03. PRN MEDS GIVEN. WILL CONTINUE TO MONITOR.
[2018-11-20 06:14] LABS: HEMATOCRIT 38.8 % (42.0-52.0); HEMOGLOBIN 12.1 g/dl (14.0-18.0); MEAN CELL VOLUME 99.7 fl (80.0-94.0); MEAN CORPUSCULAR HGB 31.1 pg (27.0-31.0); MEAN CORPUSCULAR HGB CONC 31.2 g/dl (33.0-37.0); MEAN PLATELET VOLUME 9.3 fl (9.6-12.3); PLATELET COUNT AUTOMATED 371 10*3/uL (130-400); RED BLOOD COUNT 3.89 10*6/uL (4.50-5.90); RED CELL DISTRI WIDTH 14.2 % (0-14.5); WHITE BLOOD COUNT 16.9 10*3/uL (4.8-10.8)
--- NOTE | 2018-11-20 06:19 | NUR ---
PT C/O OF GENERALIZED PAIN 04/02. PRN MEDS GIVEN. WILL MONITOR FOR EFFECTIVENESS.
[2018-11-20 06:25] LABS: BUN 23 mg/dl (7-24); CHLORIDE 101 mmol/L (98-107); CREATININE 0.42 mg/dL (0.70-1.30); POTASSIUM 4.6 mmol/L (3.5-5.1); SODIUM 144 mmol/L (136-145)
[2018-11-20 07:06] LABS: PLATELET SUFFICIENCY NORMAL (NORMAL); TOTAL CELLS COUNTED 100 #CELLS
[2018-11-20 08:00] VITALS: BP 162/90
--- NOTE | 2018-11-20 08:30 | NUR ---
PATIENT MEDICATED WITH MORPHINE AT THIS TIME FOR COMPLAINTS OF GENERALIZED PAIN. PATIENT RATES HIS PAIN AN 8/10. WILL CONTINUE TO MONITOR PATIENT FOR EFFECTIVENESS.
--- NOTE | 2018-11-20 09:00 | NUR ---
[employer] Assembler in to see patient. No new needs or request at this time. He states he need to be home by tomorrow at 1330 as he has a pain clinic appt. Discussed home health care services and he would like to continue with his [facility] aide. When medically stable he will be discharged to home with the resumption of his [facility] aide.
--- NOTE | 2018-11-20 09:29 | NUR ---
PHYSICAL THERAPY Patient presented to therapy in sitting position at EOB with report of wanting to go home and 6/10 pain in the L ribs. Patient agrees to therapy session. Patient was identified by name and . Patient is on 3 liters of spO2 VIA NASAL CANULA. Patient performed STS transfer with SBA. Patient performed gait with standard cane and 3 liters of spO2 with Close Supervision for 150' x 1. Patient's O2 SAT was measured at 86% AND PULSE AT 111 with ambulation. Patient recovered within 1 min to 96% and pulse 101 post ambulating. Patient was left sitting at EOB with CALL LIGHT WITHIN REACH and tray table near patient. Patient says he will leave the hospital AMA if he is not discharged today. Patient was 1:1 with this FIELD TECHNICAL SUPPORT CONSULTANT for 15 minutes total. SVEN KYLE FIELD TECHNICAL SUPPORT CONSULTANT
[2018-11-20] MEDS ORDERED: PREDNISONE10 MG PO (10:20)
[2018-11-20] MEDS ORDERED: ZITHROMAX500 MG PO (10:20)
--- NOTE | 2018-11-20 11:45 | NUR ---
Discharge instructions reviewed with patient/family. Patient receptive and verbalizes understanding. Follow-up care arranged. Written instructions given to patient/family. WENT OVER DISCHARGE PACKET WITH PATIENT. IV REMOVED, PATIENT TOLERATED WELL. PATIENT AWARE OF NEW PRESCRIPTIONS TO PRELIMINARY SCHOOL PSYCHOLOGIST AT HIS PHARMACY. PATIENT ALSO AWARE OF THE NEED TO FOLLOW UP WITH DR. APPOINTMENT MADE FOR PATIENT. PATIENT DENIES ANY NEEDS OR CONCERNS AT THIS TIME. PATIENT ACCOMPANIED TO CAR VIA WHEELCHAIR WITH STAFF AND FAMILY. CIRILO LOMAX
--- NOTE | 2018-11-20 13:32 | NUR ---
Patient discharged to home before Occupational Therapy evaluation attempted today. Galina Alexander OTR/l
--- NOTE | 2018-11-20 14:09 | NUR ---
PHYSICAL THERAPY CO-SIGN I approve of the Phyical Therapy notes written above. JOSEE CLOUD PT
== END 2018-11-20 12:16 | disposition home or self-care (01) | DRG 191 ==
LOC: ED 13:08 → EDHOLD 15:24 → 4E 15:24
PROVIDERS: Emergency Medicine; Internal Medicine; ADMIT Internal Medicine
DX: J43.9 Emphysema, unspecified (principal); S22.32XA Fracture of one rib, left side, initial encounter for closed fracture; E44.0 Moderate protein-calorie malnutrition; R65.10 Systemic inflammatory response syndrome (SIRS) of non-infectious origin without acute organ dysfunction; I50.32 Chronic diastolic (congestive) heart failure; J96.12 Chronic respiratory failure with hypercapnia; C34.12 Malignant neoplasm of upper lobe, left bronchus or lung; C79.51 Secondary malignant neoplasm of bone; S20.212A Contusion of left front wall of thorax, initial encounter; D72.810 Lymphocytopenia; G89.29 Other chronic pain; E87.6 Hypokalemia; E66.3 Overweight; I11.0 Hypertensive heart disease with heart failure; M19.90 Unspecified osteoarthritis, unspecified site; D53.9 Nutritional anemia, unspecified; F41.9 Anxiety disorder, unspecified; I25.10 Atherosclerotic heart disease of native coronary artery without angina pectoris; R91.8 Other nonspecific abnormal finding of lung field; F17.210 Nicotine dependence, cigarettes, uncomplicated; E83.39 Other disorders of phosphorus metabolism; W18.30XA Fall on same level, unspecified, initial encounter; Y93.89 Activity, other specified; Y99.8 Other external cause status; Z99.81 Dependence on supplemental oxygen; Z71.6 Tobacco abuse counseling; Z68.28 Body mass index [BMI] 28.0-28.9, adult; I25.2 Old myocardial infarction; Z92.21 Personal history of antineoplastic chemotherapy; Z82.49 Family history of ischemic heart disease and other diseases of the circulatory system; Z82.5 Family history of asthma and other chronic lower respiratory diseases; Z81.2 Family history of tobacco abuse and dependence; Z83.3 Family history of diabetes mellitus; Y92.098 Other place in other non-institutional residence as the place of occurrence of the external cause; Z79.82 Long term (current) use of aspirin; Z79.899 Other long term (current) drug therapy

== ENCOUNTER 2019-02-01 10:45 | Inpatient (IN) | payer MEDICARE ==
[~2019-02-01] VITALS: Ht 175.3 cm; Wt 77.7 kg
--- NOTE | ~2019-02-01 | EKG ---
[place], [place] ELECTROCARDIOGRAM REPORT NAME: SCOTT HUYNH UNIT #: [id number] ROOM: 520 DOCTOR: JEAN CARLOS DRAFT REPORT BIRTHDATE: [birth year] [facility] Test Date: 2019-02-01 Test Time: 11:10:07 Pat Name: SCOTT HUYNH Department: Room: 520 Gender: M Simulation Analyst: : 1950 Requested By: YANET BRAN Order Number: [id number] Reading MD: Luis M Melton Measurements Intervals Ava Rate: 97 P: 63 ID: [id number] QRS: -15 QRSD: 89 T: 76 QT: 325 QTc: 413 Interpretive Statements Sinus rhythm Borderline left axis deviation Low voltage, extremity leads Anteroseptal infarct, old No previous ECG available for comparison Electronically Signed On 02-02-2019 11:05:12 PDT by Luis M Melton CM:EKGRPT:ELECTROCARDIOGRAM REPORT [id number] YANET VILLALTA DRAFT REPORT YANET BRAN DO
--- NOTE | ~2019-02-01 | CON ---
[place], [place] REPORT OF CONSULTATION NAME: SCOTT HUYNH UNIT #: [id number] ROOM: 520 DOCTOR: BETH PIZARRO DPM BIRTHDATE: [birth year] DOS: PODIATRY CONSULTATION HISTORY OF PRESENT ILLNESS: This patient is seen today for care of painful elongated toenails on both feet. The patient states he gets swelling in both lower extremities. He also has dry skin in both lower extremities that has been a chronic problem for him. PAST MEDICAL HISTORY: Positive for anxiety, arthritis, coronary artery disease, COPD, lung cancer, chronic pain, hypertension, diastolic CHF, intractable pain, tobacco abuse. ALLERGIES: No known drug allergies. CURRENT MEDICATIONS: Include Cozaar, Lovenox, aspirin, phosphorus, Solu-Medrol, DuoNeb, Lipitor, [place], Zofran, and Percocet. PHYSICAL EXAMINATION: Upon lower extremity physical examination, pedal pulses are barely palpable. There is decreased hair growth noted bilaterally. Dependent edema is seen with varicosities and pigment changes. Negative Homans sign bilaterally. Skin is thin and shiny. Skin temperature is cool at the toes. Sensation appears grossly intact and symmetrical. There are prominent metatarsal heads with mild contracture of the fifth toes noted bilaterally. Nails 1 through 5 bilaterally are extremely elongated, thick, brittle, dystrophic with subungual debris present. Dry skin is seen throughout both lower extremities. There are no open wounds or ulcerations present. No signs of any bacterial infection. ASSESSMENT: Venous insufficiency, xerosis bilaterally, onychomycosis 1 through 5 bilaterally with pain, peripheral arterial disease. PLAN: Consult is performed. Manual debridement of mycotic nails 1 through 5 bilaterally in length and thickness to the level of the nail bed to reduce hazards such as infection. Recommend lotion to both lower extremities on a daily basis for the dry skin. Elevate legs to reduce peripheral edema. Follow up in 9 weeks as an outpatient for foot care. Thank you for the opportunity to take part in care of this patient. [place], [place] REPORT OF CONSULTATION NAME: SCOTT HUYNH UNIT #: [id number] ROOM: 520 DOCTOR: BETH PIZARRO DPM BIRTHDATE: [birth year] BETH FABIO PIZARRO CM:CONSTR:REPORT OF CONSULTATION 1209 02/02/19 1247 interface
[2019-02-01 10:45] VITALS: BP 146/47
[~2019-02-01 10:45] MED LIST changes: +ASPIR LOW81 MG PO; +FUROSEMIDE20 M1 PO; +HYDROCODONE-AC1 EAC2 PO; +INCRUSE ELLI62.5 MCG INH; +POTASSIUM CHLO10 ME4 PO; +ZITHROMAX500 MG PO
[2019-02-01 11:17] LABS: BASO # 0.1 10*3/uL (0.0-0.1); BASO % 0.6 % (0.0-1.0); EOS # 0.6 10*3/uL (0.0-0.4); EOS % 5.9 % (1.0-4.0); HEMATOCRIT 36.5 % (42.0-52.0); HEMOGLOBIN 11.1 g/dl (14.0-18.0); LYMPH # 0.9 10*3/uL (1.3-4.4); LYMPH % 9.9 % (27.0-41.0); MEAN CELL VOLUME 98.6 fl (80.0-94.0); MEAN CORPUSCULAR HGB CONC 30.4 g/dl (33.0-37.0); MEAN PLATELET VOLUME 8.7 fl (9.6-12.3); MONO # 0.7 10*3/uL (0.1-1.0); MONO % 7.2 % (3.0-9.0); NEUT # 7.1 10*3/uL (2.3-7.9); NEUT % 76.1 % (47.0-73.0); PLATELET COUNT AUTOMATED 470 10*3/uL (130-400); RED CELL DISTRI WIDTH 13.3 % (0-14.5); WHITE BLOOD COUNT 9.3 10*3/uL (4.8-10.8)
[2019-02-01 11:26] LABS: ACT PARTIAL THROMBO TIME 25.3 SECONDS (20.8-31.5); INTERNATIONAL NORM RATIO 0.9 (2.0-3.5)
[2019-02-01 11:32] LABS: ALBUMIN 2.8 gm/dl (3.1-4.5); ALKALINE PHOSPHATASE 69 U/L (45-117); BUN 9 mg/dl (7-24); CHLORIDE 103 mmol/L (98-107); CREATININE 0.58 mg/dL (0.70-1.30); LIPASE 44 U/L (73-393); POTASSIUM 3.8 mmol/L (3.5-5.1); SGOT/AST 12 IU/L (3-35); SGPT/ALT 11 U/L (12-78); SODIUM 143 mmol/L (136-145); TOTAL PROTEIN 6.6 gm/dL (6.4-8.2)
[2019-02-01 11:34] LABS: TROPONIN I < 0.015 ng/ml (<0.045)
[2019-02-01 12:00] VITALS: BP 148/64
[2019-02-01 15:15] VITALS: BP 148/64
--- NOTE | 2019-02-01 15:15 | NUR ---
A 68, admitted to , under the services of DARLING Hackett DO with a diagnosis of CERVICAL RADICULOPATHY, GENERALIZED WEAKNESS. Chief complaint is NUMBNESS/TINGLING TO LEFT ARM AND LEFT HAND. Patient arrived via bed from ER. Monitor applied. Initial assessment completed. Vital signs taken and recorded. DARLING HACKETT DO notified of admission to the unit. Orders received. See assessment for past medical history, medications and allergies. Patient and/or family oriented to unit. [facility] visitation policy reviewed. Clothing/patient valuable form completed. FAITH WORLEY
[2019-02-01] MEDS ORDERED: COMBIVENT RESPIM4 GM INH (15:50)
[2019-02-01] MEDS ORDERED: Ipratropium Brom3 ML INH (15:51)
[2019-02-01] MEDS ORDERED: NORCO 10-325 T1 EACH PO (15:52)
--- NOTE | 2019-02-01 17:51 | NUR ---
PATIENT MEDICATED WITH NORCO AT THIS TIME PER ORDER FOR COMPLAINTS OF BACK, RIB, LEG PAIN. RATED /10. WILL MONITOR.
[2019-02-01 20:00] VITALS: BP 122/86
--- NOTE | 2019-02-01 20:08 | NUR ---
24 HR chart check completed.
--- NOTE | 2019-02-01 21:00 | NUR ---
RESTING IN BED WATCHING TV WITH NO ACUTE DISTRESS NOTED. RESPIRATIONS EASY. LUNGS DIMINISHED WITH EXP WHEEZES. PULSE OX 94% 2L. CLAIMS INFREQUENT COUGH, NONE NOTED. OFFERED AND EDUCATED REGARDING TEDS, DECLINED STATING "I DON'T WANT THEM." CALL LIGHT WITHIN REACH. NO VOICED COMPLAINTS
--- NOTE | 2019-02-01 21:40 | NUR ---
MEDICATED WITH NORCO PER PRN ORDER FOR COMPLAINTS OF NECK, ELBOW, ARM, AND BACK PAIN RATING AN 8. CALL LIGHT WITHIN REACH. WILL MONITOR FOR EFFECTIVENESS
[2019-02-02] VITALS: BP 136/67
--- NOTE | 2019-02-02 | NUR ---
EARLIER MEDS APPEAR EFFECTIVE. RESTING WITH EYES CLOSED. RESPIRATIONS EASY. VSS. BI-PAP IN USE.
--- NOTE | 2019-02-02 | NUR ---
DR LEAL PRESENT ON FLOOR. INFORMED OF PATIENT'S WISHES FOR DNR-CCA
--- NOTE | 2019-02-02 | NUR ---
EARLIER MEDS APPEAR EFFECTIVE. RESTING WITH EYES CLOSED. RESPIRATIONS EASY. VSS. CALL LIGHT WITHIN REACH
--- NOTE | 2019-02-02 04:51 | NUR ---
MEDICATED WITH NORCO PER PRN ORDER FOR COMPLAINTS OF GENERALIZED PAIN RATING A 10. CALL LIGHT WITHIN REACH. WILL MONITOR FOR EFFECTIVENESS
--- NOTE | 2019-02-02 06:00 | NUR ---
EARLIER NORCO APPEARS EFFECTIVE, RESTING WITH EYES CLOSED. O2 IN USE. CALL LIGHT WITHIN REACH
[2019-02-02 06:21] LABS: HEMATOCRIT 37.2 % (42.0-52.0); HEMOGLOBIN 10.9 g/dl (14.0-18.0); MEAN CELL VOLUME 98.4 fl (80.0-94.0); MEAN CORPUSCULAR HGB 28.8 pg (27.0-31.0); MEAN CORPUSCULAR HGB CONC 29.3 g/dl (33.0-37.0); MEAN PLATELET VOLUME 8.8 fl (9.6-12.3); PLATELET COUNT AUTOMATED 448 10*3/uL (130-400); RED BLOOD COUNT 3.78 10*6/uL (4.50-5.90); RED CELL DISTRI WIDTH 13.2 % (0-14.5); WHITE BLOOD COUNT 7.5 10*3/uL (4.8-10.8)
[2019-02-02 06:41] LABS: ALBUMIN 2.9 gm/dl (3.1-4.5); ALKALINE PHOSPHATASE 70 U/L (45-117); BUN 14 mg/dl (7-24); CHLORIDE 102 mmol/L (98-107); CHOLESTEROL 176 mg/dL (<200); FREE T4 1.06 ng/dl (0.76-1.46); HDL CHOLESTEROL 66 mg/dl (40-60); LDL CHOLESTEROL 91 mg/dL (9-159); PHOSPHOROUS 2.2 mg/dL (2.5-4.9); SGOT/AST 11 IU/L (3-35); SGPT/ALT 11 U/L (12-78); SODIUM 141 mmol/L (136-145); TOTAL PROTEIN 6.9 gm/dL (6.4-8.2); TRIGLYCERIDES 94 mg/dl (<150); VLDL CHOLESTEROL 19 mg/dL (6-40)
[2019-02-02 06:45] LABS: THYROID STIM HORMONE (HS) 0.183 uIU/ml (0.358-4.75)
[2019-02-02 07:07] LABS: PLATELET SUFFICIENCY HIGH (NORMAL); TOTAL CELLS COUNTED 100 #CELLS
[2019-02-02 08:00] VITALS: BP 156/70
--- NOTE | 2019-02-02 08:12 | NUR ---
PHYSICAL THERAPY Nursing screen received. PT orders also received. Thank you. Kandi Lennon,PT
--- NOTE | 2019-02-02 09:45 | NUR ---
patient medicated with norco at this time for complaints of back and neck pain 06/02, will monitor.
--- NOTE | 2019-02-02 10:24 | NUR ---
PODIATRY NOTIFIED OF CONSULT.
--- NOTE | 2019-02-02 10:24 | NUR ---
Occupational Therapy evaluation completed on 5 with full eval to follow. Precautions include fall risk,new onset left neck to elb pain 8/10 and absent sensation left elbow to hand, lung CA on chemotherapy x 1 yr, moderate complexity level [id number] via chart review, testing and evalaution. Recommend limited OT per POC and recommend higher level of care where neurology consult available for further eval of LUE and precautions. Thank you. Tracy Alexander OTR/L
--- NOTE | 2019-02-02 10:57 | NUR ---
PHYSICAL THERAPY PAtient evaluated on 5, full evaluation to follow. Mobility activities only completed ( transfers and limited gait) due to Special tests/MRI to C and T spine with significant findings including but no limited to thecal sac involved and possible mass. Testing and patients symptoms of sudden significant numbness, weakness (myotomes and dermatomes patterns) and pain indicate transfere to another facility with nuerology consult recommended. PAtient is high complexity via chart review, tests and evaluation: [id number]. Thank you for this referral. Kandi Lennon,PT
--- NOTE | 2019-02-02 11:00 | NUR ---
per patient, medication has been effective. no further complaints at this time.
--- NOTE | 2019-02-02 11:31 | NUR ---
Owner/Operator in to talk to patient. Patient states lives at HOME with ALONE. There are NO steps in the home. Physician: NONE AT THIS TIME, WAS SEEING Shannon FRY BUT NOT ANYMORE PER PT [facility]: [facility] Home health services: NONE HAS HAD [facility] IN PAST Patient's level of ADLs: INDEPENDENT Patient has working utilities: YES DME: OXYGEN PORTABLE TANKS, NEBULIZER, CANE Follow-up physician's appointment after d/c: WILL FIND NEW MD AND MAKE APPOINTMENT AFTER DICHARGE Does patient want to access PORTAL?: NO Discharge plan PT STATES HE LIVES IN AN APARTMENT ALONE AND HAS FAMILY WHO LOOKS IN ON HIM. STATES HE IS ABLE TO CARE FOR HIMSELF. HAS HAD [facility] IN PAST AND WOULD LIKE TO HAVE THEM ON DISCHARGE. STATES HE HAS OXYGEN AT HOME FROM [facility]. PLANS TO RETURN HOME ON DISCHARGE WITH NO NEEDS. WILL CONTINUE TO FOLLOW. FAMILY WILL TAKE HIM HOME.. BRITTNI SMITH
[2019-02-02 12:00] VITALS: BP 141/50
--- NOTE | 2019-02-02 12:56 | NUR ---
PATIENT MEDICATED FOR PAIN WITH FENTANYL PATCH AND OXYCODONE. C/O BACK AND NECK PAIN 07/03. WILL MONITOR FOR EFFECTIVENESS.
--- NOTE | 2019-02-02 13:30 | NUR ---
Nursing screen completed and Occupational Therapy evaluation completed. Thank you. Galina Alexander OTR/l
[2019-02-02 16:00] VITALS: BP 122/75
--- NOTE | 2019-02-02 18:35 | NUR ---
PATIENT TAKEN TO [facility] VIA [facility]. [facility] REMAINS INTACT. FAMILY AWARE OF TRANSFER AND BED NUMBER. REPORT GIVEN TO RECEIVING NURSE. PATIENT ON 3L NASAL CANNULA. TAKEN OFF FLOOR BY CART.
== END 2019-02-02 18:35 | disposition short-term general hospital (02) | DRG 74 ==
LOC: ED 10:45 → EDHOLD 14:22 → 5E 14:22
PROVIDERS: Emergency Medicine; Student in an Organized Health Care Education/Training Program; ADMIT Internal Medicine
DX: M54.12 Radiculopathy, cervical region (principal); C79.51 Secondary malignant neoplasm of bone; C34.12 Malignant neoplasm of upper lobe, left bronchus or lung; I50.32 Chronic diastolic (congestive) heart failure; J96.10 Chronic respiratory failure, unspecified whether with hypoxia or hypercapnia; E44.0 Moderate protein-calorie malnutrition; M25.522 Pain in left elbow; R73.9 Hyperglycemia, unspecified; G89.3 Neoplasm related pain (acute) (chronic); Z66 Do not resuscitate; Z51.5 Encounter for palliative care; M50.31 Other cervical disc degeneration, high cervical region; M50.323 Other cervical disc degeneration at C6-C7 level; J43.9 Emphysema, unspecified; M19.90 Unspecified osteoarthritis, unspecified site; I87.2 Venous insufficiency (chronic) (peripheral); L85.3 Xerosis cutis; B35.1 Tinea unguium; I73.9 Peripheral vascular disease, unspecified; I25.10 Atherosclerotic heart disease of native coronary artery without angina pectoris; I11.0 Hypertensive heart disease with heart failure; F41.9 Anxiety disorder, unspecified; I25.2 Old myocardial infarction; Z82.49 Family history of ischemic heart disease and other diseases of the circulatory system; Z82.5 Family history of asthma and other chronic lower respiratory diseases; Z83.3 Family history of diabetes mellitus; Z80.3 Family history of malignant neoplasm of breast; Z81.2 Family history of tobacco abuse and dependence; Z83.6 Family history of other diseases of the respiratory system; Z92.21 Personal history of antineoplastic chemotherapy; Z79.82 Long term (current) use of aspirin; Z79.899 Other long term (current) drug therapy